=== PATIENT | female | born 1980 | race Hispanic/Latino ===

== ENCOUNTER 2020-06-14 10:31 | Emergency (ER) | payer OTHER ==
[~2020-06-14] VITALS: Ht 162.6 cm; Wt 49.9 kg
--- OUTSIDE RECORDS SUMMARY | ~2020-06-14 | XMS | Encounter Summary ---
Demographics + + + | Address | [address] | | | [place] [address] | + + + | Home Phone | | + + + | Preferred Language | Unknown | + + + | Marital Status | | + + + | Anglican Affiliation | Unknown | + + + | Race | Unknown | + + + | Ethnic Group | Unknown | + + + Author + + + | Author | [facility] | | | and [place] | + + + | Organization | [facility] | | | and [place] | + + + | Address | Unknown | + + + | Phone | Unavailable | + + + Support + + + + + | Name | Relationship | Address | Phone | + + + + + | Kaiden Sandoval | ECON | [address] | | | | | [place] | | | | | [address] | | + + + + + Care Team Providers + +------+ + | Care Dye Weigher Helper Name | Role | Phone | + +------+ + | Unknown, Physician | PCP | | + +------+ + Reason for Visit +--------+ + | Reason | Comments | +--------+ + | URI | x 1 week. Productive cough, chest congestion, intermittent fever. | | | | +--------+ + Encounter Details +--------+---------+ + + + | Date | Type | Department | Care Team | Description | +--------+---------+ + + + | 04/15/ | Office | [facility] | Bárbara Brown | Multiple URI | | 2019 | Visit | [address] | A, SURGEON ASSISTANT [address] | (Primary Dx); | | | | [address] | [place] [address] | Impacted cerumen of | | | | [facility] | [phone] | left ear | | | | [place] [address] | | | | | | [phone] | | | +--------+---------+ + + + Social History + +-------+ +--------+------+ | Tobacco Use | Types | Packs/Day | Years | Date | | | | | Used | | + +-------+ +--------+------+ | Never Smoker | | | | | + +-------+ +--------+------+ + +---+---+---+ | Smokeless Tobacco: | | | | | Never Used | | | | + +---+---+---+ + + +---------+ + | Alcohol Use | Drinks/Week | oz/Week | Comments | + + +---------+ + | No | | | | + + +---------+ + + + + | Sex Assigned at | Date Recorded | | | | + + + | Not on file | | + + + documented as of this encounter Last Filed Vital Signs + + + + + | Vital Sign | Reading | Time Taken | Comments | + + + + + | Blood Pressure | 106/64 | 04/15/2019 11:09 AM | | | | | PDT | | + + + + + | Pulse | 92 | 04/15/2019 11:09 AM | | | | | PDT | | + + + + + | Temperature | 36.8 C (98.3 F) | 04/15/2019 11:09 AM | | | | | PDT | | + + + + + | Respiratory Rate | 16 | 04/15/2019 11:09 AM | | | | | PDT | | + + + + + | Oxygen Saturation | 100% | 04/15/2019 11:09 AM | | | | | PDT | | + + + + + | Inhaled Oxygen | - | - | | | Concentration | | | | + + + + + | Weight | 53.5 kg (118 lb) | 04/15/2019 11:09 AM | | | | | PDT | | + + + + + | Height | - | - | | + + + + + | Body Mass Index | 20.25 | 02/19/2016 10:49 AM | | | | | PDT | | + + + + + documented in this encounter Patient Instructions Patient Instructions Bárbara Brown ARNP - 04/15/2019 11:40 AM PDTMucinex DM, 12 sandra r size and take one twice daily for congestion and cough. Could add benzonatate 100 mg ever y 6-8 hours as needed for cough. Drink lots of water and get enough rest.Electronically sig marlena by SUZY Stokes at 04/15/2019 11:41 AM PDT documented in this encounter Progress Notes Bárbara Brown ARNP - 04/15/2019 11:40 AM PDTFormatting of this note might be differ ent from the original. Pallavi Sandoval is a 38 y.o. female Chief Complaint: URI (x 1 week. Productive cough, chest congestion, intermittent fever. ) HPI IIll for 7 days with an annoying cough. C/o congested nose, aore throat and mostly a dry cough, but occasionally has green mucous. Has tried Dayquil and Nyquil and Hals. Was s een Sunday and was Dx with a sinus infection. Was given some OTC meds that are not helping. Has not taken any Tylenol or ibuprofen for fever or throat pain today. PREVENTIVE CARE/PRIOR VISITS 1. Any recommendations from Health Maintenance: Preventative Services TOPIC LAST DONE NEXT DUE Vaccine: Influenza 07/13/2019 Cervical Cancer Screening (Pap) 2010 Vaccine: Dtap/Tdap/Td 1999 2. Any immunizations necessary: There is no immunization history on file for this patient. Allergies Allergen Reactions Procaine Other (See Comments) Respiratory arrest Acetaminophen Other (See Comments) Unknown reaction Latex Other (See Comments) Per unknown Oxycodone Other (See Comments) Unknown Amoxicillin Penicillins Medications: Patient Reported Taking No current medications. Past Medical History She has no past medical history on file. Past Surgical History She has no past surgical history on file. Family History: Her family history is not on file. Social History: Social History Socioeconomic History Marital status: Spouse name: Not on file Number of children: Not on file Years of education: Not on file Highest education level: Not on file Tobacco Use Smoking status: Never Smoker Smokeless tobacco: Never Used Substance and Sexual Activity Alcohol use: No Review of Systems Constitutional: Positive for appetite change, chills, diaphoresis and fever. Trouble sleeping due to cough and congestion. HENT: Positive for congestion, rhinorrhea, sore throat, trouble swallowing and voice change . My Left ear popped on 04-12-19 and there was blood coming out, but was told there was to o much wax to see. They tried to clean it out with water, but since then I can not hear out of my left ear. Eyes: Negative. Respiratory: Frequent coughing Cardiovascular: Negative. Gastrointestinal: Positive for nausea and vomiting. Vomited yesterday. Some diarrhea yesterday. Endocrine: Negative. Genitourinary: Negative. Musculoskeletal: Negative. Skin: Negative. Allergic/Immunologic: Negative. Neurological: Positive for dizziness. Negative for headaches. Hematological: Negative. Objective: Vitals: 04/15/19 1109 BP: 106/64 Pulse: 92 Resp: 16 Temp: 36.8 C (98.3 F) TempSrc: Temporal SpO2: 100% Weight: 53.5 kg (118 lb) Physical Exam Constitutional: She appears well-developed and well-nourished. No distress. Appears unhappy. HENT: Head: Normocephalic. Right Ear: External ear normal. Left Ear: External ear normal. Nose: Nose normal. Mouth/Throat: No oropharyngeal exudate. Left ear canal full of wax, decreased hearing, no visible blood and ear is not tender to to uch or exam. Right ear is WNL. Mildly red throat without exudates and tonsils are small. The strep test is negative. The left ear is cleaned out with warm water and then alcohol to dry. She is thankful she can hear again. There was no sign of canal trauma and the TM is WNL. Neck: Normal range of motion. No thyromegaly present. Cardiovascular: Normal rate and normal heart sounds. No murmur heard. Pulmonary/Chest: Effort normal and breath sounds normal. No respiratory distress. She has n o wheezes. She has no rales. She exhibits no tenderness. C/o itchy tickle in throat that makes her cough. Cough is dry sounding to me. Abdominal: Soft. Bowel sounds are normal. Musculoskeletal: Normal gait, balance, and posture. Lymphadenopathy: She has no cervical adenopathy. Skin: Skin is warm and dry. She is not diaphoretic. Psychiatric: She has a normal mood and affect. Her behavior is normal. Judgment and thought content normal. Nursing note and vitals reviewed. Results for orders placed or performed in visit on 04/15/19 POCT Streptococcus A NAAT Result Value Ref Range Group A Strep, DNA POC Negative Negative Internal QC Acceptable Acceptable CULTURE SENT TO LAB Assessment: 1. Multiple URI POCT Streptococcus A NAAT 2. Impacted cerumen of left ear Plans: 1. Multiple URI - POCT Streptococcus A NAAT 2. Impacted cerumen of left ear Mucinex DM, 12 hour size and take one twice daily for congestion and cough. Could add gregorio onatate 100 mg every 6-8 hours as needed for cough. Drink lots of water and get enough rest Follow-up: Return if symptoms worsen or fail to improve. Care instructions and warning signs were discussed. Medications per orders. Side effects discussed. Labs and investigations per orders. documented in this encounter Plan of Treatment Not on filedocumented as of this encounter Procedures + +--------+ + + + | Procedure Name | Priori | Date/Time | Associated Diagnosis | Comments | | | ty | | | | + +--------+ + + + | POCT STREPTOCOCCUS A | Routin | 04/15/2019 | Multiple URI | Results for this | | NAAT | e | 11:40 AM | | procedure are in the | | | | PDT | | results section. | + +--------+ + + + documented in this encounter Results POCT Streptococcus A NAAT (04/15/2019 11:40 AM PDT) + + + + + + | Component | Value | Ref Range | Performed | Pathologist | | | | | At | Signature | + + + + + + | Group A | Negative | Negative | | | | Strep, DNA | | | | | | POC | | | | | + + + + + + | Internal QC | Acceptable | Acceptable | | | + + + + + + | CULTURE | | | | | | SENT TO LAB | | | | | + + + + + + + + | Specimen | + + | | + + documented in this encounter Visit Diagnoses + + | Diagnosis | + + | Multiple URI - Primary Acute upper respiratory infections of other multiple sites | + + | Impacted cerumen of left ear Impacted cerumen | + + documented in this encounter"
--- OUTSIDE RECORDS SUMMARY | ~2020-06-14 | XMS | Clinical Summary ---
Demographics + + + | Address | [address] | | | [place] [address] | + + + | Home Phone | | + + + | Preferred Language | Unknown | + + + | Marital Status | | + + + | Scientologist Affiliation | Unknown | + + + | Race | Unknown | + + + | Ethnic Group | Unknown | + + + Author + + + | Author | [facility] | | | and [place] | + + + | Organization | [facility] | | | and [place] | + + + | Address | Unknown | + + + | Phone | Unavailable | + + + Support + + + + + | Name | Relationship | Address | Phone | + + + + + | Kaiden Sandoval | ECON | [address] | | | | | [place], [place] | | | | | [address] | | + + + + + Care Team Providers + +------+ + | Care Technical Analyst Name | Role | Phone | + +------+ + | Unknown, Physician | PCP | | + +------+ + Allergies + + + + + + | Active Allergy | Reactions | Severity | Noted | Comments | | | | | Date | | + + + + + + | Acetaminophen | Other (See Comments) | Medium | 02/18/20 | Unknown reaction | | | | | 16 | | + + + + + + | Amoxicillin | | | 08/20/20 | | | | | | 18 | | + + + + + + | Latex | Other (See Comments) | Medium | 02/18/20 | Per | | | | | 16 | unknown | + + + + + + | Oxycodone | Other (See Comments) | Medium | 02/18/20 | Unknown | | | | | 16 | | + + + + + + | Penicillins | | | 08/20/20 | | | | | | 18 | | + + + + + + | Procaine | Other (See Comments) | High | 02/18/20 | Respiratory arrest | | | | | 16 | | + + + + + + Medications No known medications Active Problems Not on file Social History + +-------+ +--------+------+ | Tobacco [...] on file | | + + + Last Filed Vital Signs + + + [...] + + + + | Height | 162.6 cm (5' 4") | 02/19/2016 10:49 AM | | | | | PDT | | + + + + + | Body Mass Index | 20.25 | 02/19/2016 10:49 AM | | | | | PDT | | + + + + + Plan of Treatment + + +-------+ + | Health Maintenance | Due Date | Last | Comments | | | | Done | | + + +-------+ + | Hepatitis C | | | | | Screening | 0 | | | + + +-------+ + | Vaccine: | | | | | Dtap/Tdap/Td (1 - | 9 | | | | Tdap) | | | | + + +-------+ + | Cervical Cancer | | | | | Screening (Pap) | 0 | | | + + +-------+ + | Vaccine: Influenza | | | | | (#1) | 0 | | | + + +-------+ + Results Not on filefrom Last 3 Months Insurance +---------+--------+ +--------+ +---------+------+ | Payer | Benefi | Subscriber | Effect | Phone | Address | Type | | | t Plan | ID | kevin | | | | | | / | | Dates | | | | | | Group | | | | | | +---------+--------+ +--------+ +---------+------+ | [employer] | PREMER | [id number] | | [phone] | | PPO | | | A | 3 | [id number] | 0 | | | | | PREFER | | esent | | | | | | RED | | | | | | +---------+--------+ +--------+ +---------+------+ + +--------+ +--------+ + + | Guarantor Name | Accoun | Relation to | Date | Phone | Billing Address | | | t Type | Patient | of | | | | | | | | | | + +--------+ +--------+ + + | Pallavi Sandoval | Person | Self [birth year] | [address] | | | al/Fam | | 1980 | [phone] | [place] [address] | | | marilyn | | | 4 (Home) | | + +--------+ +--------+ + + Advance Directives + + + + + | Type | Date Recorded | Patient | Explanation | | | | Saw Sharpener | | + + + + + | Power of | | | | | Guest Experience Specialist | | | | + + + + + | Advance | 08/20/2018 11:20 | | | | Directive | AM | | | + + + + +
--- OUTSIDE RECORDS SUMMARY | ~2020-06-14 | XMS | Encounter Summary ---
Demographics + + + | Address | [address] | | | [place] [address] | + + + | Home Phone | | + + + | Preferred Language | Unknown | + + + | Marital Status | | + + + | Baptism Affiliation | Unknown | + + + | Race | Unknown | + + + | Ethnic Group | Unknown | + + + Author + + + | Author | [facility] | | | and [place] | + + + | Organization | [facility] | | | and [place] | + + + | Address | Unknown | + + + | Phone | Unavailable | + + + Support + + + + + | Name | Relationship | Address | Phone | + + + + + | Kaiden Sandoval | ECON | [address] | | | | | [place] | | | | | [address] | | + + + + + Care Team Providers + +------+ + | Care Network Engineer Name | Role | Phone | + +------+ + | Unknown, Physician | PCP | | + +------+ + Reason for Visit + + + | Reason | Comments | + + + | Chest Pain | | + + + | Weakness | | + + + Encounter Details +--------+ + + + + | Date | Type | Department | Care Team | Description | +--------+ + + + + | 08/20/ | Emergency | [facility] | Germán Castillo MD | Hypoglycemia | | 2018 | | [facility] | [address] | (Primary Dx) | | | | CENTER [address] | [place], [place] | | | | | [place], [place] | [address] | | | | | [address] | | | | | | [phone] | | | +--------+ + + + + Social History + +-------+ +--------+------+ | Tobacco Use | Types | Packs/Day | Years | Date | | | | | Used | | + +-------+ +--------+------+ | Unknown If Ever | | | | | | Smoked | | | | | + +-------+ +--------+------+ + + +---------+ + | Alcohol Use [...] + + + | Blood Pressure | 96/61 | 08/20/2018 12:59 PM | | | | | PDT | | + + + + + | Pulse | 67 | 08/20/2018 12:59 PM | | | | | PDT | | + + + + + | Temperature | 37.3 C (99.1 F) | 08/20/2018 11:51 AM | | | | | PDT | | + + + + + | Respiratory Rate | 14 | 08/20/2018 12:59 PM | | | | | PDT | | + + + + + | Oxygen Saturation | 100% | 08/20/2018 12:59 PM | | | | | PDT | | + + + + + | Inhaled Oxygen | - | - | | | Concentration | | | | + + + + + | Weight | 50.8 kg (112 lb) | 08/20/2018 10:11 AM | | | | | PDT | | + + + + + | Height | - | - | | + + + + + | Body Mass Index | 19.22 | 02/19/2016 10:49 AM | | | | | PDT | | + + + + + documented in this encounter Discharge Instructions Instructions Germán Castillo MD - 08/20/2018If he develop any similar symptoms eat some food. If symptoms do not improve have someone transport you to the emergency department. AttachmentsThe following attachments cannot be sent through Care Everywhere.Hypoglycemia, N ondiabetic (German)documented in this encounter ED Notes Manny Rucker RN - 08/20/2018 1:07 PM PDTPt ambulates out of ED with a steady gait. Disch arge instructions given both verbally and in writing. Questions answered. Advised to Get a P CP. Dave Hughes RN - 1 10:11 AM PDTPt states onset of generalized weakness and chest pain starting this m orning. Pt difficult to arouse on arrival to ED and very drowsy. Germán Johnson MD - 08/20/2018 10:08 AM PDT [facility] Pallavi Sandoval Emergency Department Encounter Note [address] [place] [address] PCP:Physician Unknown SHANNEN [phone] CHIEF COMPLAINT: Chief Complaint Patient presents with Chest Pain Weakness ED Room: ED05/ED05 HPI Pallavi Sandoval is a 38 y.o. female who presents to the Emergency Department with altered ment al status and chest pressure. She is also complaining of dizziness and headache. She was f ine up until an hour ago when she had sudden onset of the symptoms. Patient's moving all 4 extremities and answering some questions properly. was at bedside states that she h as had similar presentation in the past several due to low potassium. Blood sugar was 90 on arrival. Patient was also given some Narcan. PAST MEDICAL & SURGICAL HISTORY History reviewed. No pertinent past medical history. History reviewed. No pertinent surgical history. CURRENT MEDICATIONS There are no discharge medications for this patient. ALLERGIES Allergies Allergen Reactions Amoxicillin Penicillins FAMILY AND SOCIAL HISTORY History reviewed. No pertinent family history. Social History Social History Marital status: Spouse name: N/A Number of children: N/A Years of education: N/A Social History Main Topics Smoking status: Unknown If Ever Smoked Smokeless tobacco: None Alcohol use No Drug use: Unknown Sexual activity: Not Asked Other Topics Concern None Social History Narrative None REVIEW OF SYSTEMS As in history of present illness. A 10 system review was otherwise negative. PHYSICAL EXAM VITAL SIGNS: (first vital signs):Temp: 37.3 C (99.1 F) Pulse: 109 Resp: 18 SpO2: 100 % BP: 131/61 There is no height or weight on file to calculate BMI. Constitutional: female patient, slow to respond HEENT: Atraumatic, PERRL, Oropharynx benign. Neck: Supple with full range of motion. Respiratory: Good air movement bilaterally. Cardiovascular: Normal S1 S2 Abdomen: Soft, nontender, nondistended Extremities: Nontender. Skin: Warm, Dry, No rashes Neurologic: Alert & oriented.slow to respond but answering questions appropriately Psychiatric: Normal mood, affect and judgement. EKG 12-lead EKG shows sinus tachycardia with rate 104, LA interval 156, QRS 84, QT/QTC of 33 8/444, nonspecific ST changes LABS Results for orders placed or performed during the hospital encounter of 08/20/18 CBC with Differential Result Value Ref Range WBC 4.5 4.0 - 11.0 K/uL RBC 4.13 3.70 - 5.20 M/uL Hgb 12.6 11.5 - 16.0 g/dL Hct 37.3 34.0 - 47.0 % MCV 90.3 83.0 - 101.0 fL MCH 30.5 28.0 - 35.0 pg MCHC 33.8 32.0 - 36.0 g/dL RDW-CV 12.2 <15.0 % RDW-SD 39.9 35.1 - 46.3 fL Platelet Count 156 140 - 440 K/uL MPV 10.6 6.5 - 12.4 fL % Neutrophils 51.4 45.0 - 82.0 % % Lymphocytes 39.6 20.0 - 45.0 % % Monocytes 7.3 4.0 - 12.0 % % Eosinophils 1.3 0.0 - 5.0 % % Basophils 0.4 0.0 - 1.0 % % Immature granulocytes 0.0 0.0 - 0.4 % Absolute Neutrophils 2.32 1.80 - 8.50 K/uL Absolute Lymphocytes 1.79 0.60 - 3.20 K/uL Absolute Monocytes 0.33 0.00 - 1.00 K/uL Absolute Eosinophils 0.06 0.00 - 0.40 K/uL Absolute Basophils 0.02 0.00 - 0.10 K/uL Absolute Imm. Granulocytes 0.00 0.00 - 0.03 K/uL nRBC 0 0 - 2 per 100 WBC's NRBC ABS 0.00 0.00 - 0.01 K/uL Comprehensive Metabolic Panel Result Value Ref Range NA 135 (L) 136 - 149 mmol/L K 3.4 (L) 3.5 - 5.1 mmol/L CL 104 98 - 109 mmol/L CO2 23 (L) 24 - 31 mmol/L ANION GAP 8 3 - 16 mmol/L GLUCOSE 98 70 - 109 mg/dL BUN 9 7 - 18 mg/dL Creatinine, Serum/Plasma 0.71 0.60 - 1.30 mg/dL eGFR if not >60 >=60 mL/min/1.73m2 CALCIUM 9.1 8.3 - 10.5 mg/dL ALBUMIN 4.1 3.2 - 5.0 g/dL Bilirubin Total 0.9 0.1 - 1.5 mg/dL Total protein 7.0 6.0 - 7.8 g/dL AST 20 10 - 42 U/L ALT 12 6 - 45 U/L ALK PHOS 49 40 - 110 U/L GLOBULIN 2.9 2.1 - 3.8 g/dL Albumin/Globulin ratio 1.4 0.8 - 2.0 BUN/CREA 12.7 Troponin I Result Value Ref Range Troponin I <0.01 <0.06 ng/mL Urinalysis with Microscopic with Culture if Indicated Result Value Ref Range COLOR Yellow Light Yellow, Yellow, Straw CLARITY Hazy (A) Clear PH UA 8.0 5.0 - 8.0 Specific [place] 1.006 1.001 - 1.030 PROTEIN UA Negative Negative BLOOD UA Negative Negative GLUCOSE UA Negative Negative KETONES UA Negative Negative BILIRUBIN UA Negative Negative NITRITE UA Negative Negative LEUKOCYTES ESTERASE UA Trace (A) Negative UROBILINOGEN UA Negative 0.2 mg/dL, 1.0 mg/dL, Negative WBC UA 0-2 0 - 2 /HPF RBC UA 0-2 0 - 2 /HPF SQUAMOUS EPITHELIAL UA 25-50 (A) 0 - 2 /LPF BACTERIA UA 2+ (A) Negative /HPF MUCUS UA Present (A) Negative /LPF Acetaminophen Level Result Value Ref Range Acetaminophen Level <10 <10 ug/mL Salicylate Level Result Value Ref Range Salicylate Level <4.0 <30.0 mg/dL Ethanol Result Value Ref Range ALCOHOL, SERUM/PLASMA <5 <400 mg/dL Drugs of Abuse, Screen, Urine Result Value Ref Range Amphetamine Screen, Urine Negative Negative Barbiturates Screen, Urine Negative Negative Benzodiazepines, Urine, Screen Negative Negative Cannabinoids Screen, Urine Negative Negative Cocaine Screen, Urine Negative Negative Methadone Screen, Urine Negative Negative Opiates Screen, Urine Negative Negative Extra Lavender Top Tube Result Value Ref Range Extra Lavender Top Tube Done POCT Test, Urine, QUAL Result Value Ref Range Test, Urine, POC Negative Negative Internal QC Acceptable Acceptable Specific [place], POC 1.010, 1.015, 1.020, 1.025 Lot Number [id number] Expiration Date 10/21/2019 POC Glucose Result Value Ref Range Glucose, POC 90 70 - 109 mg/dL ECG 12 lead Result Value Ref Range VENTRICULAR RATE EKG 104 BPM ATRIAL RATE 104 BPM P-R INTERVAL 156 ms QRS DURATION 84 ms Q-T INTERVAL 338 ms Q-T INTERVAL (CORRECTED) 444 ms P WAVE AXIS 53 degrees QRS AXIS 51 degrees T AXIS 36 degrees INTERPRETATION TEXT Sinus tachycardia Nonspecific ST abnormality Abnormal ECG No previous ECGs available Confirmed by MICHAEL HUGHES MD ([id number]) on 08/20/2018 4:56:34 PM ED COURSE & MEDICAL DECISION MAKING Pertinent Labs & Imaging studies were reviewed along with EMS notes and care home record s if applicable. (See chart for details) Medications and Allergy list reviewed. Nurses note and old records were reviewed The patient was seen and examined. Patient was able to provide more thorough history during her ED stay. Her the course of e first 45 minutes patient's mental status did improve. She became a lot more alert and trinity ented. She then asked to be discharged. Patient has been informing the nurse at the school told her that her blood sugar was low. She was given food. arrived he told me lawanda t she had similar presentation previously secondary to hypokalemia. Workup here was relativ alok unremarkable. Potassium was 3.4. EKG did not show anything acute. Possible that episo de was secondary to a hypoglycemic event. Patient was instructed to return if she develop a ny similar symptoms. Also encouraged to eat if she felt lightheaded. Last Set of Vital Signs: Temp: 37.3 C (99.1 F) Pulse: 67 Resp: 14 SpO2: 100 % BP: 96/61 FINAL IMPRESSION ICD-10-CM ICD-9-CM 1. HypoglycemiaAcute E16.2 251.2 Follow-up Information [facility]. Specialty: Emergency Medicine Why: If symptoms worsen Contact information: [address] [place] [phone] Schedule an appointment as soon as possible for a visit with Physician Unknown PA. Contact information: [phone] There are no discharge medications for this patient. Germán Castillo MD 08/21/18 [id number] documented in this encou nter Plan of Treatment Not on filedocumented as of this encounter Procedures + +--------+ + + + | Procedure Name | Priori | Date/Time | Associated Diagnosis | Comments | | | ty | | | | + +--------+ + + + | POCT TEST, | STAT | 08/20/2018 | | Results for this | | URINE, QUAL | | 11:57 AM | | procedure are in the | | | | PDT | | results section. | + +--------+ + + + | URINALYSIS WITH | STAT | 08/20/2018 | | Results for this | | MICROSCOPIC WITH | | 11:52 AM | | procedure are in the | | CULTURE IF INDICATED | | PDT | | results section. | + +--------+ + + + | DRUGS OF ABUSE, | STAT | 08/20/2018 | | Results for this | | SCREEN, URINE | | 11:52 AM | | procedure are in the | | | | PDT | | results section. | + +--------+ + + + | EXTRA LAVENDER TOP | Routin | 08/20/2018 | | Results for this | | TUBE | e | 10:31 AM | | procedure are in the | | | | PDT | | results section. | + +--------+ + + + | TROPONIN I | STAT | 08/20/2018 | | Results for this | | | | 10:26 AM | | procedure are in the | | | | PDT | | results section. | + +--------+ + + + | CBC WITH | STAT | 08/20/2018 | | Results for this | | DIFFERENTIAL | | 10:26 AM | | procedure are in the | | | | PDT | | results section. | + +--------+ + + + | ALCOHOL | STAT | 08/20/2018 | | Results for this | | | | 10:26 AM | | procedure are in the | | | | PDT | | results section. | + +--------+ + + + | ACETAMINOPHEN LEVEL | STAT | 08/20/2018 | | Results for this | | | | 10:26 AM | | procedure are in the | | | | PDT | | results section. | + +--------+ + + + | SALICYLATE LEVEL | STAT | 08/20/2018 | | Results for this | | | | 10:26 AM | | procedure are in the | | | | PDT | | results section. | + +--------+ + + + | COMPREHENSIVE | STAT | 08/20/2018 | | Results for this | | METABOLIC PANEL | | 10:26 AM | | procedure are in the | | | | PDT | | results section. | + +--------+ + + + | POC GLUCOSE | Routin | 08/20/2018 | | Results for this | | | e | 10:21 AM | | procedure are in the | | | | PDT | | results section. | + +--------+ + + + | ECG 12 LEAD | STAT | 08/20/2018 | | Results for this | | | | 10:15 AM | | procedure are in the | | | | PDT | | results section. | + +--------+ + + + documented in this encounter Results POCT Test, Urine, QUAL (08/20/2018 11:57 AM PDT) + + + + + + | Component | Value | Ref Range | Performed | Pathologist | | | | | At | Signature | + + + + + + | | Negative | Negative | | | | Test, | | | | | | Urine, POC | | | | | + + + + + + | Internal QC | Acceptable | Acceptable | | | + + + + + + | Specific | | 1.010, 1.015, | | | | [place], | | 1.020, 1.025 | | | | POC | | | | | + + + + + + | Lot Number | [id number] | | | | + + + + + + | Expiration | 10/21/2019 | | | | | Date | | | | | + + + + + + + + | Specimen | + + | Urine | + + Drugs of Abuse, Screen, Urine (08/20/2018 11:52 AM PDT) + + + + + + | Component | Value | Ref Range | Performed | Pathologist | | | | | At | Signature | + + + + + + | Amphetamine | Negative | Negative | [facility] | | | Screen, | | | [facility] | | | Urine | | | MEDICAL | | | | | | CENTER - | | | | | | LABORATORY | | + + + + + + | Barbiturate | Negative | Negative | [facility] | | | s Screen, | | | [facility] | | | Urine | | | MEDICAL | | | | | | CENTER - | | | | | | LABORATORY | | + + + + + + | Benzodiazep | Negative | Negative | [facility] | | | janina | | | [facility] | | | Screen, | | | MEDICAL | | | Urine | | | CENTER - | | | | | | LABORATORY | | + + + + + + | Cannabinoid | Negative | Negative | [facility] | | | s Screen, | | | [facility] | | | Urine | | | MEDICAL | | | | | | CENTER - | | | | | | LABORATORY | | + + + + + + | Cocaine | Negative | Negative | [facility] | | | Screen, | | | [facility] | | | Urine | | | MEDICAL | | | | | | CENTER - | | | | | | LABORATORY | | + + + + + + | Methadone | Negative | Negative | [facility] | | | Screen, | | | [facility] | | | Urine | | | MEDICAL | | | | | | CENTER - | | | | | | LABORATORY | | + + + + + + | Opiates | Negative | Negative | [facility] | | | Screen, | | | [facility] | | | Urine | | | MEDICAL | | | | | | CENTER - | | | | | | LABORATORY | | + + + + + + + + | Specimen | + + | Urine - Urine | | specimen obtained by | | clean catch | | procedure (specimen) | + + + + + + + | Performing | Address | City/State/Zipcode | Phone Number | | Organization | | | | + + + + + | [facility] | [address] | [place] | [phone] | | [facility] | | [address] | | | - LABORATORY | | | | + + + + + Urinalysis with Microscopic with Culture if Indicated (08/20/2018 11:52 AM PDT) + + + + + + | Component | Value | Ref Range | Performed | Pathologist | | | | | At | Signature | + + + + + + | Color, | Yellow | Light Yellow, | [facility] | | | Urine | | Yellow, Straw | [facility] | | | | | | MEDICAL | | | | | | CENTER - | | | | | | LABORATORY | | + + + + + + | Clarity, | Hazy (A) | Clear | [facility] | | | Urine | | | [facility] | | | | | | MEDICAL | | | | | | CENTER - | | | | | | LABORATORY | | + + + + + + | pH, Urine | 8.0 | 5.0 - 8.0 | [facility] | | | | | | [facility] | | | | | | MEDICAL | | | | | | CENTER - | | | | | | LABORATORY | | + + + + + + | Specific | 1.006 | 1.001 - 1.030 | [facility] | | | [place], | | | [facility] | | | Urine | | | MEDICAL | | | | | | CENTER - | | | | | | LABORATORY | | + + + + + + | Protein, | Negative | Negative | [facility] | | | Urine | | | [facility] | | | | | | MEDICAL | | | | | | CENTER - | | | | | | LABORATORY | | + + + + + + | Blood, | Negative | Negative | [facility] | | | Urine | | | [facility] | | | | | | MEDICAL | | | | | | CENTER - | | | | | | LABORATORY | | + + + + + + | Glucose, | Negative | Negative | [facility] | | | Urine | | | [facility] | | | | | | MEDICAL | | | | | | CENTER - | | | | | | LABORATORY | | + + + + + + | Ketones, | Negative | Negative | [facility] | | | Urine | | | [facility] | | | | | | MEDICAL | | | | | | CENTER - | | | | | | LABORATORY | | + + + + + + | Bilirubin, | Negative | Negative | [facility] | | | Urine | | | [facility] | | | | | | MEDICAL | | | | | | CENTER - | | | | | | LABORATORY | | + + + + + + | Nitrite, | Negative | Negative | [facility] | | | Urine | | | [facility] | | | | | | MEDICAL | | | | | | CENTER - | | | | | | LABORATORY | | + + + + + + | Leukocyte | Trace (A) | Negative | [facility] | | | Esterase, | | | [facility] | | | Urine | | | MEDICAL | | | | | | CENTER - | | | | | | LABORATORY | | + + + + + + | Urobilinoge | Negative | 0.2 mg/dL, 1.0 | [facility] | | | n, Urine | | mg/dL, Negative | [facility] | | | | | | MEDICAL | | | | | | CENTER - | | | | | | LABORATORY | | + + + + + + | White Blood | 0-2 | 0 - 2 /HPF | [facility] | | | Cells, | | | [facility] | | | Urine | | | MEDICAL | | | | | | CENTER - | | | | | | LABORATORY | | + + + + + + | Red Blood | 0-2 | 0 - 2 /HPF | [facility] | | | Cells, | | | [facility] | | | Urine | | | MEDICAL | | | | | | CENTER - | | | | | | LABORATORY | | + + + + + + | Squamous | 25-50 (A) | 0 - 2 /LPF | [facility] | | | Epithelial | | | [facility] | | | Cells, | | | MEDICAL | | | Urine | | | CENTER - | | | | | | LABORATORY | | + + + + + + | Bacteria, | 2+ (A) | Negative /HPF | [facility] | | | Urine | | | [facility] | | | | | | MEDICAL | | | | | | CENTER - | | | | | | LABORATORY | | + + + + + + | Mucus, | Present (A) | Negative /LPF | [facility] | | | Urine | | | [facility] | | | | | | MEDICAL | | | | | | CENTER - | | | | | | LABORATORY | | + + + + + + + + | Specimen | + + | Urine - Urine | | specimen obtained by | | clean catch | | procedure (specimen) | + + + + + + + | Performing | Address | City/State/Zipcode | Phone Number | | Organization | | | | + + + + + | [facility] | [address] | [place] | [phone] | | [facility] | | [address] | | | - LABORATORY | | | | + + + + + Extra Lavender Top Tube (08/20/2018 10:31 AM PDT) + +-------+ + + + | Component | Value | Ref Range | Performed | Pathologist | | | | | At | Signature | + +-------+ + + + | Extra | Done | | [facility] | | | Lavender | | | [facility] | | | Top Tube | | | MEDICAL | | | | | | CENTER - | | | | | | LABORATORY | | + +-------+ + + + + + | Specimen | + + | Blood | + + + + + + + | Performing | Address | City/State/Zipcode | Phone Number | | Organization | | | | + + + + + | [facility] | [address] | [place] | [phone] | | [facility] | | [address] | | | - LABORATORY | | | | + + + + + Ethanol (08/20/2018 10:26 AM PDT) + +-------+ + + + | Component | Value | Ref Range | Performed | Pathologist | | | | | At | Signature | + +-------+ + + + | ALCOHOL, | <5 | <400 mg/dL | [facility] | | | SERUM/PLASM | | | [facility] | | | A | | | MEDICAL | | | | | | CENTER - | | | | | | LABORATORY | | + +-------+ + + + + + | Specimen | + + | Blood | + + + + + + + | Performing | Address | City/State/Zipcode | Phone Number | | Organization | | | | + + + + + | [facility] | [address] | [place] | [phone] | | [facility] | | [address] | | | - LABORATORY | | | | + + + + + Salicylate Level (08/20/2018 10:26 AM PDT) + +-------+ + + + | Component | Value | Ref Range | Performed | Pathologist | | | | | At | Signature | + +-------+ + + + | Salicylate | <4.0 | <30.0 mg/dL | [facility] | | | Level | | | [facility] | | | | | | MEDICAL | | | | | | CENTER - | | | | | | LABORATORY | | + +-------+ + + + + + | Specimen | + + | Blood | + + + + + + + | Performing | Address | City/State/Zipcode | Phone Number | | Organization | | | | + + + + + | [facility] | [address] | [place] | [phone] | | [facility] | | [address] | | | - LABORATORY | | | | + + + + + Acetaminophen Level (08/20/2018 10:26 AM PDT) + +-------+ + + + | Component | Value | Ref Range | Performed | Pathologist | | | | | At | Signature | + +-------+ + + + | Acetaminoph | <10 | <10 ug/mL | [facility] | | | en Level | | | [facility] | | | | | | MEDICAL | | | | | | CENTER - | | | | | | LABORATORY | | + +-------+ + + + + + | Specimen | + + | Blood | + + + + + + + | Performing | Address | City/State/Zipcode | Phone Number | | Organization | | | | + + + + + | [facility] | [address] | [place] | [phone] | | [facility] | | [address] | | | - LABORATORY | | | | + + + + + Troponin I (08/20/2018 10:26 AM PDT) + + + + + + | Component | Value | Ref Range | Performed | Pathologist | | | | | At | Signature | + + + + + + | Troponin I | <0.01Comment: Reference | <0.06 ng/mL | [facility] | | | | Ranges:0.00-0.06 = | | [facility] | | | | NORMAL>0.06 = | | MEDICAL | | | | SUSPICIOUS FOR | | CENTER - | | | | MYOCARDIAL DAMAGE NOTE: | | LABORATORY | | | | Values greater than 0.50 | | | | | | ng/mL have been shown | | | | | | to be strongly | | | | | | associated with acute | | | | | | myocardial infarction. | | | | | | The [employer] | | | | | | Cardiology (ACC) | | | | | | recommends a decision | | | | | | limit of 0.06 ng/mL for | | | | | | this assay. Results | | | | | | greater than 0.06 can | | | | | | reflect a pre-infarct | | | | | | acute coronary syndrome, | | | | | | but can also reflect | | | | | | myocardial necrosis or | | | | | | injury that is not due | | | | | | to coronary artery | | | | | | disease. Some of these | | | | | | causes are sepsis, | | | | | | hypocolemia, atrial | | | | | | fibrillation, heart | | | | | | failure, pulmonary | | | | | | embolism, myocarditis, | | | | | | myocardial contusion, | | | | | | and renal failure. The | | | | | | diagnosis of myocardial | | | | | | infarction should be | | | | | | based on a combination | | | | | | of the patient's | | | | | | clinical presentation | | | | | | and the clinical | | | | | | laboratory test results | | | | | | (especially serial | | | | | | troponin levels). | | | | + + + + + + + + | Specimen | + + | Blood | + + + + + + + | Performing | Address | City/State/Zipcode | Phone Number | | Organization | | | | + + + + + | [facility] | [address] | [place] | [phone] | | [facility] | | [address] | | | - LABORATORY | | | | + + + + + Comprehensive Metabolic Panel (08/20/2018 10:26 AM PDT) + + + + + + | Component | Value | Ref Range | Performed | Pathologist | | | | | At | Signature | + + + + + + | Na | 135 (L) | 136 - 149 | [facility] | | | | | mmol/L | [facility] | | | | | | MEDICAL | | | | | | CENTER - | | | | | | LABORATORY | | + + + + + + | K | 3.4 (L) | 3.5 - 5.1 | [facility] | | | | | mmol/L | [facility] | | | | | | MEDICAL | | | | | | CENTER - | | | | | | LABORATORY | | + + + + + + | Cl | 104 | 98 - 109 mmol/L | [facility] | | | | | | [facility] | | | | | | MEDICAL | | | | | | CENTER - | | | | | | LABORATORY | | + + + + + + | CO2 | 23 (L) | 24 - 31 mmol/L | [facility] | | | | | | [facility] | | | | | | MEDICAL | | | | | | CENTER - | | | | | | LABORATORY | | + + + + + + | Anion Gap | 8 | 3 - 16 mmol/L | [facility] | | | | | | [facility] | | | | | | MEDICAL | | | | | | CENTER - | | | | | | LABORATORY | | + + + + + + | Glucose | 98 | 70 - 109 mg/dL | [facility] | | | | | | [facility] | | | | | | MEDICAL | | | | | | CENTER - | | | | | | LABORATORY | | + + + + + + | BUN | 9 | 7 - 18 mg/dL | [facility] | | | | | | [facility] | | | | | | MEDICAL | | | | | | CENTER - | | | | | | LABORATORY | | + + + + + + | Creatinine | 0.71 | 0.60 - 1.30 | [facility] | | | | | mg/dL | [facility] | | | | | | MEDICAL | | | | | | CENTER - | | | | | | LABORATORY | | + + + + + + | eGFR, | >60Comment: GLOMERULAR | >=60 | [facility] | | | non- | FILTRATION | mL/min/1.73m2 | [facility] | | | [place] | RATE,ESTIMATED | | MEDICAL | | | | mL/min/1.29k2Fesq than | | CENTER - | | | | 60 Chronic kidney | | LABORATORY | | | | disease,if found over a | | | | | | 3-month period.Less than | | | | | | 15 Kidney failureFor | | | | | | | | | | | | Americans,multiply the | | | | | | calculated GFR by 1.21. | | | | | | | | | | + + + + + + | Calcium | 9.1 | 8.3 - 10.5 | [facility] | | | | | mg/dL | [facility] | | | | | | [facility] - | | | | | | LABORATORY | | + + + + + + | Albumin | 4.1 | 3.2 - 5.0 g/dL | [facility] | | | | | | [facility] | | | [facility] | | [facility] | | | | | | [facility] - | | | | | | LABORATORY | | + + + + + + | Bilirubin | 0.9Comment: This is an | 0.1 - 1.5 mg/dL | [facility] | | | Total | appended report. These | | [facility] | | | | results have been | | MEDICAL | | | | appended to a previously | | CENTER - | | | | preliminary verified | | LABORATORY | | | | report. | | | | + + + + + + | Total | 7.0 | 6.0 - 7.8 g/dL | [facility] | | | Protein | | | [facility] | | | | | | [facility] | | | | | | CENTER - | | | | | | LABORATORY | | + + + + + + | AST | 20Comment: This is an | 10 - 42 U/L | [facility] | | | | appended report. These | | [facility] | | | | results have been | | MEDICAL | | | | appended to a previously | | CENTER - | | | | preliminary verified | | LABORATORY | | | | report. | | | | + + + + + + | ALT | 12Comment: This is an | 6 - 45 U/L | [facility] | | | | appended report. These | | [facility] | | | | results have been | | MEDICAL | | | | appended to a previously | | CENTER - | | | | preliminary verified | | LABORATORY | | | | report. | | | | + + + + + + | Alkaline | 49Comment: This is an | 40 - 110 U/L | [facility] | | | Phosphatase | appended report. These | | [facility] | | | | results have been | | MEDICAL | | | | appended to a previously | | CENTER - | | | | preliminary verified | | LABORATORY | | | | report. | | | | + + + + + + | Globulin | 2.9 | 2.1 - 3.8 g/dL | [facility] | | | | | | [facility] | | | | | | [facility] | | | | | | CENTER - | | | | | | LABORATORY | | + + + + + + | Albumin/Miryam | 1.4 | 0.8 - 2.0 | [facility] | | | bulin Ratio | | | [facility] | | | | | | [facility] | | | | | | CENTER - | | | | | | LABORATORY | | + + + + + + | BUN/Creatin | 12.7 | | [facility] | | | ine Ratio | | | [facility] | | | | | | [facility]ICAL | | | | | | CENTER - | | | | | | LABORATORY | | + + + + + + + + | Specimen | + + | Blood | + + + + + + + | Performing | Address | City/State/Zipcode | Phone Number | | Organization | | | | + + + + + | [facility] | [address] | [place] | [phone] | | [facility] | | [address] | | | - LABORATORY | | | | + + + + + CBC with Differential (08/20/2018 10:26 AM PDT) + + + + + + | Component | Value | Ref Range | Performed | Pathologist | | | | | At | Signature | + + + + + + | White Blood | 4.5 | 4.0 - 11.0 K/uL | [facility] | | | Cells | | | [facility] | | | | | | MEDICAL | | | | | | CENTER - | | | | | | LABORATORY | | + + + + + + | Red Blood | 4.13 | 3.70 - 5.20 | [facility] | | | Cells | | M/uL | [facility] | | | | | | MEDICAL | | | | | | CENTER - | | | | | | LABORATORY | | + + + + + + | Hemoglobin | 12.6 | 11.5 - 16.0 | [facility] | | | | | g/dL | [facility] | | | | | | [facility]ICAL | | | | | | CENTER - | | | | | | LABORATORY | | + + + + + + | Hematocrit | 37.3 | 34.0 - 47.0 % | [facility] | | | | | | [facility] | | | | | | [facility]ICAL | | | | | | CENTER - | | | | | | LABORATORY | | + + + + + + | MCV | 90.3 | 83.0 - 101.0 fL | [facility] | | | | | | [facility] | | | | | | [facility] | | | | | | CENTER - | | | | | | LABORATORY | | + + + + + + | MCH | 30.5 | 28.0 - 35.0 pg | [facility] | | | | | | [facility] | | | | | | [facility] | | | | | | CENTER - | | | | | | LABORATORY | | + + + + + + | MCHC | 33.8 | 32.0 - 36.0 | [facility] | | | | | g/dL | [facility] | | | | | | [facility] | | | | | | CENTER - | | | | | | LABORATORY | | + + + + + + | RDW-CV | 12.2 | <15.0 % | [facility] | | | | | | [facility] | | | | | | [facility] | | | | | | CENTER - | | | | | | LABORATORY | | + + + + + + | RDW-SD | 39.9 | 35.1 - 46.3 fL | [facility] | | | | | | [facility] | | | | | | [facility] | | | | | | CENTER - | | | | | | LABORATORY | | + + + + + + | Platelet | 156 | 140 - 440 K/uL | [facility] | | | Count | | | [facility] | | | | | | MEDICAL | | | | | | CENTER - | | | | | | LABORATORY | | + + + + + + | MPV | 10.6 | 6.5 - 12.4 fL | [facility] | | | | | | [facility] | | | | | | [facility] | | | | | | CENTER - | | | | | | LABORATORY | | + + + + + + | % | 51.4 | 45.0 - 82.0 % | [facility] | | | Neutrophils | | | [facility] | | | | | | [facility]ICAL | | | | | | CENTER - | | | | | | LABORATORY | | + + + + + + | % | 39.6 | 20.0 - 45.0 % | [facility] | | | Lymphocytes | | | [facility] | | | | | | [facility]ICAL | | | | | | CENTER - | | | | | | LABORATORY | | + + + + + + | % Monocytes | 7.3 | 4.0 - 12.0 % | [facility] | | | | | | [facility] | | | | | | [facility] | | | | | | CENTER - | | | | | | LABORATORY | | + + + + + + | % | 1.3 | 0.0 - 5.0 % | [facility] | | | Eosinophils | | | [facility] | | | | | | MEDICAL | | | | | | CENTER - | | | | | | LABORATORY | | + + + + + + | % Basophils | 0.4 | 0.0 - 1.0 % | [facility] | | | | | | [facility] | | | | | | [facility]ICAL | | | | | | CENTER - | | | | | | LABORATORY | | + + + + + + | % Immature | 0.0Comment: For | 0.0 - 0.4 % | [facility] | | | Granulocyte | patients, use the | | [facility] | | | s | special reference ranges | | MEDICAL | | | | listed below. | | CENTER - | | | | | | LABORATORY | | + + + + + + | Absolute | 2.32 | 1.80 - 8.50 | [facility] | | | Neutrophils | | K/uL | [facility] | | | | | | MEDICAL | | | | | | CENTER - | | | | | | LABORATORY | | + + + + + + | Absolute | 1.79 | 0.60 - 3.20 | [facility] | | | Lymphocytes | | K/uL | [facility] | | | | | | MEDICAL | | | | | | CENTER - | | | | | | LABORATORY | | + + + + + + | Absolute | 0.33 | 0.00 - 1.00 | [facility] | | | Monocytes | | K/uL | [facility] | | | | | | MEDICAL | | | | | | CENTER - | | | | | | LABORATORY | | + + + + + + | Absolute | 0.06 | 0.00 - 0.40 | [facility] | | | Eosinophils | | K/uL | [facility] | | | | | | MEDICAL | | | | | | CENTER - | | | | | | LABORATORY | | + + + + + + | Absolute | 0.02 | 0.00 - 0.10 | [facility] | | | Basophils | | K/uL | [facility] | | | | | | MEDICAL | | | | | | CENTER - | | | | | | LABORATORY | | + + + + + + | Absolute | 0.00Comment: For | 0.00 - 0.03 | [facility] | | | Immature | patients, use | K/uL | [facility] | | | Granulocyte | the special reference | | MEDICAL | | | s | ranges listed below. | | CENTER - | | | | | | LABORATORY | | + + + + + + | % nRBC | 0 | 0 - 2 per 100 | [facility] | | | | | WBC's | [facility] | | | | | | MEDICAL | | | | | | CENTER - | | | | | | LABORATORY | | + + + + + + | Absolute | 0.00 | 0.00 - 0.01 | [facility] | | | nRBC | | K/uL | [facility] | | | | | | MEDICAL | | | | | | CENTER - | | | | | | LABORATORY | | + + + + + + + + | Specimen | + + | Blood | + + + + + | Narrative | Performed At | + + + | IMMATURE GRANULOCYTES - For patients, use the following | [facility] | | reference ranges: Trim. Absolute (K/uL) Percentage (%) | [facility] | | 1st 0.003-0.091 K/uL 0.0-0.9% 2nd 0.007-0.247 K/uL | MEDICAL CENTER | | 0.1-2.0% 3rd 0.018-0.456 K/uL 0.1-2.0% | - LABORATORY | + + + + + + + + | Performing | Address | City/State/Zipcode | Phone Number | | Organization | | | | + + + + + | [facility] | [address] | [place] | [phone] | | [facility] | | [address] | | | - LABORATORY | | | | + + + + + POC Glucose (08/20/2018 10:21 AM PDT) + +-------+ + + + | Component | Value | Ref Range | Performed | Pathologist | | | | | At | Signature | + +-------+ + + + | Glucose, | 90 | 70 - 109 mg/dL | [facility] | | | POC | | | [facility] | | | | | | MEDICAL | | | | | | CENTER - | | | | | | LABORATORY | | + +-------+ + + + + + | Specimen | + + | Blood | + + + + + + + | Performing | Address | City/State/Zipcode | Phone Number | | Organization | | | | + + + + + | [facility] | [address] | [place] | [phone] | | [facility] | | [address] | | | - LABORATORY | | | | + + + + + ECG 12 lead (08/20/2018 10:15 AM PDT) + + + + + + | Component | Value | Ref Range | Performed | Pathologist | | | | | At | Signature | + + + + + + | VENTRICULAR | 104 | BPM | [facility] | | | RATE EKG | | | | | + + + + + + | ATRIAL RATE | 104 | BPM | [facility] | | + + + + + + | P-R | 156 | ms | [facility] | | | INTERVAL | | | | | + + + + + + | QRS | 84 | ms | [facility] | | | DURATION | | | | | + + + + + + | Q-T | 338 | ms | [facility] | | | INTERVAL | | | | | + + + + + + | Q-T | 444 | ms | [facility] | | | INTERVAL | | | | | | (CORRECTED) | | | | | + + + + + + | P WAVE AXIS | 53 | degrees | [facility] | | + + + + + + | QRS AXIS | 51 | degrees | [facility] | | + + + + + + | T AXIS | 36 | degrees | [facility] | | + + + + + + | INTERPRETAT | Sinus | | [facility] | | | ION TEXT | tachycardiaNonspecific | | | | | | ST abnormalityAbnormal | | | | | | ECGNo previous ECGs | | | | | | availableConfirmed by | | | | | | MICHAEL HUGHES MD ([id number]) | | | | | | on 08/20/2018 4:56:34 PM | | | | + + + + + + + + | Specimen | + + | | + + + + + | Narrative | Performed At | + + + | | | + + + + +---------+ + + | Performing | Address | City/State/Zipcode | Phone Number | | Organization | | | | + +---------+ + + | [facility] | | | | + +---------+ + + documented in this encounter Visit Diagnoses + + | Diagnosis | + + | Hypoglycemia - Primary Hypoglycemia, unspecified | + + documented in this encounter Administered Medications + +--------+ +--------+------+------+ | Medication Order | MAR | Action | Dose | Rate | Site | | | Action | Date | | | | + +--------+ +--------+------+------+ | naloxone (NARCAN) 0.4 mg/mL | Given | 08/20/20 | 0.4 mg | | | | injection Starting 08/20/18 | | 18 10:17 | | | | | at 1016, For 1 dose, Mariam, | | AM PDT | | | | | Consuelo : atrun fish, | | | | | | + +--------+ +--------+------+------+ +---+---+ | | | +---+---+ + +-------+ +------+---+---+ | ondansetron (ZOFRAN) injection | Given | 08/20/20 | 4 mg | | | | 4 mg 4 mg, Intravenous, ONCE, | | 18 10:30 | | | | | 08/20/18 at 1025, For 1 dose | | AM PDT | | | | + +-------+ +------+---+---+ +---+---+ | | | +---+---+ + +---------+ +--------+-------+---+ | sodium chloride 0.9% (NS) bolus | New Bag | 08/20/20 | 1,000 | 2000 | | | 1,000 mL 1,000 mL, Intravenous, | | 18 10:28 | mLs | mL/hr | | | Administer over 30 Minutes, | | AM PDT | | | | | ONCE, [place] 08/20/18 at 1025, For 1 | | | | | | | dose | | | | | | + +---------+ +--------+-------+---+ +---+---+ | | | +---+---+ documented in this encounter"
--- OUTSIDE RECORDS SUMMARY | ~2020-06-14 | XMS | Encounter Summary ---
Demographics + + + | Address | [address] | | | [place] [address] | + + + | Home Phone | | + + + | Preferred Language | Unknown | + + + | Marital Status | | + + + | Orthodox Affiliation | Unknown | + + + | Race | Unknown | + + + | Ethnic Group | Unknown | + + + Author + + + | Author | [facility] | | | and [place]ak[place] | + + + | Organization | [facility] | | | and [place] | + + + | Address | Unknown | + + + | Phone | Unavailable | + + + Support + + + + + | Name | Relationship | Address | Phone | + + + + + | Kaiden Sandoval | ECON | [address] | | | | | [place], [place] | | | | | [address] | | + + + + + Care Team Providers + +------+ + | Care Heel Edge Inker Machine Name | Role | Phone | + +------+ + PCP | Unavailable | + +------+ + Encounter Details +--------+ + + + + | Date | Type | Department | Care Team | Description | +--------+ + + + + | 02/17/ | Hospital | [facility] | Eduardo Iyer | Respiratory failure, | | 2016 - | Encounter | [facility] | Willis Griffith MD [address] | unspecified | | | | CLINICAL DECISION | [address] | chronicity, | | 02/18/ | | [address] | [place] [address] | unspecified whether | | 2015 | | [place], [place] | [phone] | with hypoxia or | | | | [address] | | hypercapnia (HCC); | | | | [phone] | | Allergic drug | | | | | | reaction; Lactic | | | | | | acidosis; | | | | | | Hypokalemia | +--------+ + + + + Social History + +-------+ +--------+------+ | Tobacco Use | Types | Packs/Day | Years | Date | | | | | Used | | + +-------+ +--------+------+ | Never Assessed | | | | | + +-------+ +--------+------+ + + + | Sex Assigned at | Date Recorded | | | | + + + | Not on file | | + + + documented as of this encounter Last Filed Vital Signs + + + + + | Vital Sign | Reading | Time Taken | Comments | + + + + + | Blood Pressure | 115/67 | 02/19/2016 10:49 AM | | | | | PDT | | + + + + + | Pulse | 82 | 02/19/2016 10:49 AM | | | | | PDT | | + + + + + | Temperature | 37.5 C (99.5 F) | 02/19/2016 10:49 AM | | | | | PDT | | + + + + + | Respiratory Rate | 16 | 02/19/2016 10:49 AM | | | | | PDT | | + + + + + | Oxygen Saturation | - | - | | + + + + + | Inhaled Oxygen | - | - | | | Concentration | | | | + + + + + | Weight | 52.8 kg (116 lb 8 | 02/19/2016 10:49 AM | | | | oz) | PDT | | + + + + + | Height | 162.6 cm (5' 4") | 02/19/2016 10:49 AM | | | | | PDT | | + + + + + | Body Mass Index | 20 | 02/19/2016 10:49 AM | | | | | PDT | | + + + + + documented in this encounter Discharge Summaries Chio Martinez MD - 02/19/2016 4:28 PM PDTFormatting of this note might be different fro m the original. Discharge Summaries by Chio Martinez MD at 02/19/16 8651 Author: Chio Martinez MD Service: (none) Author Type: Physician Filed: 02/19/16 1636 Date of Service: 02/19/161627 Status: Signed Factory Clerk: Chio Martinez MD (Physician) [facility] Service: Hospitalist Discharge Summary Date of Admission: 02/18/2016 Date of Discharge: 02/19/2016 Discharge Provider: Chio Martinez MD Treatment Team: Consulting Physician: Eduardo Iyer MD Admitting Provider: Eduardo Iyer MD Discharge Diagnoses: Principal Problem: Respiratory arrest (HCC) Active Problems: Allergic reaction caused by a drug Precordial pain Resolved Problems: * No resolved hospital problems. * Significant Diagnostic Studies: Echocardiogram showed ejection fraction of 65-70 percent. HOSPITAL COURSE: This is a 35-year-old female who otherwise is quite healthy and does not take any medi cations at home. She had root canal scheduled at her dentist's office yesterday. Shortly aft er injection with novocaine, she started feeling quite short of breath as if her airway was closing. When EMS arrived at the scene, she was intubated for airway protection. In the ER s he was extubated. Her vitals stabilized over the night. She was not having any stridor and s hortness of breath in the morning. Patient had some chest pains, hence the bone ends were do ne twice which were negative. EKG showed normal sinus rhythm. Echocardiogram also done which showed an ejection fraction of 65-70 percent. She was concerned about her dentist doing her root canal again. I tried calling the dentist's office but being a weekend I could not get in touch with anyone. Advised her to get in touch with her dentist's office the day after to pachceo, Sunday. I decided on discharging her with tramadol for pain as well as Augmentin for antibiotic coverage for a week for her tooth infection. So far she had been controlling her tooth ache with ibuprofen only at home. Vital Signs: BP 115/67 mmHg | Pulse 82 | Temp(Src) 99.5 F (37.5 C) (Oral) | Resp 16 | Ht 1.626 m (5' 4") | Wt 52.844 kg (116 lb 8 oz) | BMI 19.99 kg/m2 | SpO2 100% Patient is awake, alert, oriented to time, place and person Skin: Warm and supple Neck: No JVD Chest: Normal vesicular breath sounds, good air entry bilaterally CVS: S1S2 audible, no murmurs heard Abdomen: Soft, non tender, normal bowel sounds, no organomegaly Extremities: No pedal edema, clubbing or cyanosis Neurologic examination: No focal sensory or motor deficits Back examination: No CVA tenderness, no spinal tenderness Disposition: Home Condition: Stable No discharge procedures on file. Follow up: Per Pt None In 2 days Discharge took 25 minutes, to include final examination, discussion of admission, and prepa ration of prescriptions, instructions for on-going care, follow-up and documentation of disc harge summary. Medication List START taking these medications amoxicillin-clavulanate 875-125 MG per tablet QTY: 14 tablet Refills: 0 Commonly known as: AUGMENTIN Take 1 tablet by mouth 2 (two) times daily. traMADol 50 MG tablet QTY: 20 tablet Refills: 0 Commonly known as: ULTRAM Take 1-2 tablets by mouth every 6 (six) hours as needed for Pain. STOP taking these medications ibuprofen 400 MG tablet Commonly known as: MOTRIN Where to Get Your Medications These are the prescriptions that you need to scrap picker. You may get the following medications from any pharmacy - amoxicillin-clavulanate 875-125 MG per tablet - traMADol 50 MG tablet documented in this e ncounter Progress Notes Conversion Transaction, Provider Unknown - 02/19/2016 6:09 PM PDTFormatting of this note m ight be different from the original. Case Management by Marisol Nevarez RN at 02/19/161808 Author: Marisol Nevarez RN Service: (none) Author Type: Registered Nurse Filed: 02/19/161808 Date of Service: 02/19/161808 Status: Signed Factory Clerk: Marisol Nevarez RN (Registered Nurse) Attempted to meet with pt but she was discharged before CM rounded. onver chavo Transaction, Provider Unknown - 02/19/2016 7:30 AM PDT Nurse Progress Note by Tanya Sullivan RN at 02/19/16729 Author: Tanya Sullivan RN Service: (none) Author Type: Registered Nurse Filed: 02/19/16732 Date of Service: 02/19/16729 Status: Signed Factory Clerk: Tanya Sullivan RN (Registered Nurse) Around 0615 patient began c/o worsening tooth pain and a worsening feeling of light headedn ess, VSS BP was 108/66. Pt was encouraged to order breakfast. Pt stated she does not want to take pain medication unless it gets a lot more severe. Pt encouraged to inform RN if pain c ontinues to worsen before it gets out of control. Pt denied chest pain and/or arm numbness/t ingling. Tanya Sullivan RN onver chavo Transaction, Provider Unknown - 02/19/2016 5:17 AM PDT Nurse Progress Note by Tanya Sullivan RN at 02/19/16516 Author: Tanya Sullivan RN Service: (none) Author Type: Registered Nurse Filed: 02/19/16519 Date of Service: 02/19/16516 Status: Signed Factory Clerk: Tanya Sullivan RN (Registered Nurse) Pt slept for most of shift. Reports feeling better this AM, continues to c/o of sore throat but says tooth pain has improved. Pt denies chest pain, R arm pain/tingling or SOB for this shift. VSS. No other changes from previous assessment. Tanya Sullivan RN onver chavo Transaction, Provider Unknown - 02/18/2016 7:44 PM PDT Progress Notes by Sirisha Day RPH at 02/18/161943 Author: Sirisha Day RPH Service: (none) Author Type: Pharmacist Filed: 02/18/161943 Date of Service: 02/18/161943 Status: Signed Factory Clerk: Sirisha Day RPH (Pharmacist) Renal Dosing Monitoring: Santiago Sandoval 35 y.o. female Pharmacy dosing for renal function per Dr. Eduardo Iyer CREATININE: 0.59 (02/18/16 1025) Estimated creatinine clearance - 110.9 mL/min Plan per protocol: No medications need adjustment at this time. Pharmacy will continue to monitor changes in medication orders and renal function and will adjust accordingly. 02/18/2016 7:43 PM Pharmacist: Sirisha Day docume nted in this encounter H&P Notes Eduardo Iyer MD - 02/18/2016 1:43 PM PDTFormatting of this note might be diff erent from the original. H&P by Eduardo Iyer MD at 02/18/16 1343 Author: Eduardo Iyer MD Service: Hospitalist Author Type: Physician Filed: 02/18/16 7026 Date of Service: 02/18/16 1343 Status: Signed Factory Clerk: Eduardo Iyer MD (Physician) [facility] Service: Hospitalist Admission History & Physical Date of Admission: 02/18/2016 Requesting Physician: Dr. Gann, Emergency Department Reason for Admission: Respiratory arrest/? Reaction to anesthetic History Obtained From: patient, spouse, chart review, Quality of history: good CHIEF COMPLAINT: the patient is his radiation felt short of breath after being given anes thetic at dentist and res(piratory arrest on way to ED S/P intubation HISTORY OF PRESENT ILLNESS The patient is a 89 y.o. unknown with no significant past medical history except allergy t o latex, laparoscopic cholecystectomy, and childbirth.. Had been having headaches for the last 84 weeks, subsequently had a CT scan, was subsequen tly thought to have infected tooth, I subsequently was at the dentist today and was given No vocain then began having a difficulty breathing, patient stated palpitations, EMS was called , and improved the patient was in sinus tachycardia with heart rate of 120, and subsequently stopped breathing was given succinylcholine, etomidate and Versed and intubated. On arrival in Emergency Department CT scan and chest x-ray were done, labs were all within normal limits except a lactic acid of 2.6, CRP was less than 0.3, no acute findings on CT sc an, a chest x-ray likewise no acute finding, the patient became more, but there, and then th e patient started to become more awake, subsequently extubated and otherwise stable.. Hospitalist service called to have the patient observe further. By the time admitting hospitalist and the patient the patient was able to tell although wit h a hoarse voice, complaining of sore throat, the patient denied any previous medical histor y episode of fainting, along with the headache had been having substernal chest pressure lawanda t radiated down the right arm for the last 3 weeks exacerbated with activity and relieved by rest, she may also have had a little bit of shortness of breath at that time, a chest pain was accompanied by diaphoresis too. There is no family history of sudden cardiac or premature coronary artery disease. REVIEW OF SYSTEMS ROS obtained from patient, spouse, chart review. A comprehensive review of systems was negative except for items mentioned in HPI No past medical history on file. No past surgical history on file. Immunizations: Influenza: Not indicated Pneumoccocal: Not indicated Allergies Allergen Reactions Acetaminophen Other (See Comments) Unknown reaction Latex Other (See Comments) Per unknown Oxycodone Other (See Comments) Unknown (Not in a hospital admission) No mom is allergic to anesthetic, sister and mom had gallstones from 25-30, mom has diabete s mellitus and hypertension. History Social History Marital Status: Spouse Name: N/A Number of Children: N/A Years of Education: N/A Occupational History Not on file. Social History Main Topics Smoking status: Not on file Smokeless tobacco: Not on file Alcohol Use: Not on file Drug Use: Not on file Sexual Activity: Not on file Other Topics Concern Not on file Social History Narrative No narrative on file PHYSICAL EXAM BP 116/63 mmHg | Pulse 98 | Resp 14 | Wt 52.164 kg (115 lb) | SpO2 100% General Appearance: Alert, cooperative, no distress, appears stated age, voice hoarse Head: Normocephalic, without obvious abnormality, atraumatic Eyes: PERRL, conjunctiva/corneas clear, EOM's intact, Ears: Normal external ear canals, both ears Nose: Nares normal, septum midline, mucosa normal, no drainage or sinus tenderness Throat: Lips, mucosa, and tongue normal; teeth and gums normal Neck: Supple, symmetrical, trachea midline, no adenopathy; thyroid: no enlargement/tenderness/nodules; no carotid bruit or JVD Back: Symmetric, no curvature, ROM normal, no CVA tenderness Lungs: Clear to auscultation bilaterally, respirations unlabored Chest Wall: No tenderness or deformity Heart: Regular rate and rhythm, S1 and S2 normal, no murmur, rub or gallop Abdomen: Soft, non-tender, bowel sounds active all four quadrants, no masses, no organomegaly, positive laparoscopic scar Extremities: Extremities normal, atraumatic, no cyanosis or edema Pulses: 2+ and symmetric all extremities Skin: Skin color, texture, turgor normal, no rashes or lesions Lymph nodes: Cervical, supraclavicular, and axillary nodes normal Neurologic: CNII-XII intact, normal strength, sensation and reflexes throughout DATA CBC: Lab Results Component Value Date WBC 5.00 02/18/2016 RBC 3.85 02/18/2016 HGB 11.9 02/18/2016 HCT 34.7 02/18/2016 MCV 90.2 02/18/2016 MCH 31.0 02/18/2016 MCHC 34.4 02/18/2016 RDW 40.3 02/18/2016 PLT 164 02/18/2016 MPV 8.2 02/18/2016 DIFFTYPE AUTOMATED 02/18/2016 CMP: Lab Results Component Value Date NA 140 02/18/2016 K 3.0* 02/18/2016 CL 110* 02/18/2016 CO2 19* 02/18/2016 ANIONGAP 14 02/18/2016 GLUF 111* 02/18/2016 BUN 11 02/18/2016 CREATININE 0.59 02/18/2016 BCR 19 02/18/2016 CA 7.4* 02/18/2016 PROT 6.8 02/18/2016 ALB 3.4 02/18/2016 GLOB 3.4 02/18/2016 BILITOT 0.6 02/18/2016 ALP 41 02/18/2016 AST 13 02/18/2016 ALT 17 02/18/2016 EGFR NOT ABLE TO CALCULATE 02/18/2016 Calcium: No results found for: CALCIUM Magnesium: No results found for: MG Phosphorus: No results found for: PHOS PT/INR: Lab Results Component Value Date INR 1.0 02/18/2016 PTT: Lab Results Component Value Date APTT 24 02/18/2016 [APTT} Troponin: No results found for: TROPONINI CPK: Lab Results Component Value Date CKTOTAL 128 02/18/2016 CKMB: Lab Results Component Value Date CKMB 1.4 02/18/2016 U/A: Lab Results Component Value Date CLARITYU CLEAR 02/18/2016 LEUKOCYTESUR NEGATIVE 02/18/2016 NITRITE NEGATIVE 02/18/2016 UROBILINOGEN NORMAL 02/18/2016 PHUR 6.0 02/18/2016 BLOODU NEGATIVE 02/18/2016 KETONES TRACE 02/18/2016 BILIRUBINUR NEGATIVE 02/18/2016 GLUCOSEU NEGATIVE 02/18/2016 HgBA1c: No results found for: HGBA1C, LABGLYC TSH: No results found for: TSH, TSHNEO, TSHREFLEX Amylase: No results found for: AMYLASE Lipase: No results found for: LIPASE Ct Head Non-con 02/18/[address] of the brain without contrast. Xr Chest Ap Portable 02/18/2016 1. Endotracheal tube terminates in close proximity with the анна. Recommend w ithdrawal by 2 to 3 cm. 2. Critical result: The imaging findings are discussed with the ord ering clinician by telephone at 12:58 PM. Xr Chest Ap Portable 02/18/2016 1. Right mainstem endotracheal intubation. Retract the ET tube 6 cm for optimal positioning. This was discussed with Dr. Gann at 10:40 AM date of study. LEM LIST Principal Problem: Respiratory arrest (HCC) Active Problems: Allergic reaction caused by a drug Precordial pain ASSESSMENT & PLAN Patient Active Hospital Problem List: Respiratory arrest (HCC) (02/18/2016) Assessment: ? From reaction to novocaine versus other causes with the patient having ches t pain with exertion for the last 3 weeks Plan: Observe, will continue with serial cardiac enzymes and if the continued to be negat kevin stress test tomorrow, ordered echocardiogram given the patient's age. Heparin for deep v ein thrombosis prophylaxis Allergic reaction caused by a drug (02/18/2016) Assessment: Patient is also allergic to latex? Patient exposed to latex along with the no vocaine Plan: Have added novocaine to the patient's list of allergies Precordial pain (02/18/2016) Assessment: Patient did not have CPR and precordial pain was present prior to respiratory arrest. Plan: As above I explained radiology and lab findings, plan of care and management to patient and at bedside, told them somebody else from the hospitalist service will see patient later. Sujit cortés and verbalized understanding and agreement with plan of care and did not have any more questions for me after my interaction with them. More than 70 minutes spent on adm itting this patient face to face at bedside, taking history and physical examination, more t delgado 65% of this spent on explaining plan of care to patient and at bedside, kyrie israel,formulating a plan and placing orders coordinating care with other providers well as Computerized Air Intelligence Specialist. Other recommendations for management of this patient will be depkarmen dumont upon the patient's clinical course. ns when stable and improved in 24 to 48 hours. Disposition: Observe in CDU Disposition: Admit as Inpatient to Acute Care Floor Dictation software, MD2U, used which may contain error for similar sounding words even af ter review. Personal communication requested for any clarification. Portions of this chart may have been copied from previous notes for continuity of care. Code Status: Full Code Primary Care Physician: PER PT NONE Eduardo Iyer MD 02/18/2016 documented in this encounter ED Notes Conversion Transaction, Provider Unknown - 02/18/2016 1:41 PM PDTFormatting of this note m ight be different from the original. ED Notes by Mary Pastrana RN at 02/18/16 1341 Author: Mary Pastrana RN Service: (none) Author Type: Registered Nurse Filed: 02/18/16 1341 Date of Service: 02/18/16 134 Status: Signed Factory Clerk: Mary Pastrana RN (Registered Nurse) PT is alert adn answering questions appropriately Mary Pastrana RN 02/18/16 1341 onver chavo Transaction, Provider Unknown - 02/18/2016 1:06 PM PDT ED Notes by Mary Pastrana RN at 02/18/16 1306 Author: Mary Pastrana RN Service: (none) Author Type: Registered Nurse Filed: 02/18/16 1312 Date of Service: 02/18/16 1306 Status: Signed Factory Clerk: Mary Pastrana RN (Registered Nurse) PT is breathing on her own, following commands. RT remains here. Extubated adn following co mmands. Mary Pastrana RN 02/18/16 1312 onver chavo Transaction, Provider Unknown - 02/18/2016 12:49 PM PDT ED Notes by Mary Pastrana RN at 02/18/16 1249 Author: Mary Pastrana RN Service: (none) Author Type: Registered Nurse Filed: 02/18/16 1249 Date of Service: 02/18/16 1249 Status: Signed Factory Clerk: Mary Pastrana RN (Registered Nurse) Continue trail to extubate. PT is coming arround and coughing now. NOt quite following comm ands.WIll wait to extubate Mary Pastrana RN 02/18/16 1249 onver chavo Transaction, Provider Unknown - 02/18/2016 12:39 PM PDT ED Notes by Mary Pastrana RN at 02/18/16 1239 Author: Mary Pastrana RN Service: (none) Author Type: Registered Nurse Filed: 02/18/16 1240 Date of Service: 02/18/16 1239 Status: Signed Factory Clerk: Mary Pastrana RN (Registered Nurse) Pt is bucking the tube. Respiratory in the room. Dr Gann notified adn states "lets try a trial for possible extubation". Propofol is stopped. Mary Pastrana RN 02/18/16 1240 onver chavo Transaction, Provider Unknown - 02/18/2016 11:06 AM PDT ED Notes by Mary Pastrana RN at 02/18/16 1106 Author: Mary Pastrana RN Service: (none) Author Type: Registered Nurse Filed: 02/18/16 1108 Date of Service: 02/18/16 1106 Status: Signed Factory Clerk: Mary Pastrana RN (Registered Nurse) PT is taken from room t o CT with RT tech and RN. PT is paralyzed at this time. in the waiting room. Mary Pastrana RN 02/18/16 1108 onver chavo Transaction, Provider Unknown - 02/18/2016 10:51 AM PDT ED Notes by Mary Pastrana RN at 02/18/16 1051 Author: Mary Pastrana RN Service: (none) Author Type: Registered Nurse Filed: 02/18/16 1052 Date of Service: 02/18/16 1051 Status: Signed Factory Clerk: Mary Pastrana RN (Registered Nurse) Dr Gann int he room during ROCk injection Mary Pastrana RN 02/18/16 1052 onver chavo Transaction, Provider Unknown - 02/18/2016 10:33 AM PDT ED Notes by Mary Pastrana RN at 02/18/16 1033 Author: Mary Pastrana RN Service: (none) Author Type: Registered Nurse Filed: 02/18/16 1035 Date of Service: 02/18/16 1033 Status: Signed Factory Clerk: Mary Pastrana RN (Registered Nurse) PT has been very difficult to chemically restrain and sedate. EMS here for 30 minutes after arrival for extra help. Mary Pastrana RN 02/18/16 1035 aylor Gann MD - 02/18/2016 9:45 AM PDT ED Provider Notes by Taylor Gann MD at 02/18/16 0945 Author: Taylor Gann MD Service: Emergency Department Author Type: Physician Filed: 02/18/16 2333 Date of Service: 02/18/16 0945 Status: Addendum Factory Clerk: Taylor Gann MD (Physician) Related Notes: Original Note by Taylor Gann MD (Physician) filed at 02/18/16 2322 Procedure Orders: 1. Critical Care [[id number]] ordered by Taylor Gann MD at 02/18/16 2924 [facility] Department of Emergency Medicine 9:46 AM History of Present Illness Patient Identification Santiago Sandoval is a 35 y.o. female. Patient information was obtained from EMS personnel. History/Exam limitations: respiratory distress. Patient presented to the Emergency Department by: Chief Complaint Chief Complaint Patient presents with Altered Mental Status patient was at dentist and received a novacaine w/epi shot and suddenly had difficulty br eathing, assessed by EMS and on way here went into resp arrest Chief complaint: Respiratory failure Location: Pulmonary Quality: respiratory arrest Severity: Severe Onset: This morning Modifying factors: Given Care prior to arrival: EMS route Associated symptoms: SOB and medication reaction Context: The patient was at the dentist office this morning and received an intraoral injec tion of Polocaine and lidocaine with epi. After receiving the injection, the patient began h aving difficulty breathing. 911 was called. Upon EMS arrival the patient's breathing was rep ortedly swallow and agonal. When the patient was transferred to the stretcher she stopped br eathing. EMS intubated the patient. En route the patient was in sinus tach with a rate of 12 0, but had clear but diminished lungs sounds bilaterally and her BP was normal. The patient received 100 succs, 20 etomidate and 5 versed by EMS. EMS reports that as she was intubated her posterior pharynx was mildly erythematous, but no edema or swelling was noted. PCP: PER PT NONE Review of Systems limited due to intubation and AMS Past Medical History Diagnosis Date Respiratory arrest (HCC) 02/18/2016 Allergic reaction caused by a drug 02/18/2016 Precordial pain 02/18/2016 No past surgical history on file. Prior to Admission medications Not on File Allergies Allergen Reactions Novocaine [Procaine] Other (See Comments) Respiratory arrest Acetaminophen Other (See Comments) Unknown reaction Latex Other (See Comments) Per unknown Oxycodone Other (See Comments) Unknown History Social History Marital Status: Spouse Name: N/A Number of Children: N/A Years of Education: N/A Occupational History Not on file. Social History Main Topics Smoking status: Not on file Smokeless tobacco: Not on file Alcohol Use: Not on file Drug Use: Not on file Sexual Activity: Not on file Other Topics Concern Not on file Social History Narrative No narrative on file No family history on file. Physical Exam BP 110/73 mmHg | Pulse 110 | Resp 17 | Wt 52.164 kg (115 lb) | SpO2 100% Vital signs interpretation: Tachycardic otherwise normal Pulse Oximetry interpretation: Normal General: Intubated Eyes: Normal inspection, non-icteric, non-injected, PERRL with pupils 2-3 mm and questiona duc reactive ENT: Ears normal, TMs normal Nose normal O/P ETT in place Neck: Normal inspection Supple, no lymphadenopathy Back: Normal inspection CV: Rate and rhythm normal No murmurs Respiratory: Bilaterally clear to auscultation No rales, wheezing or rhonchi Abdomen: Soft, non-distended, non-tender No masses, rebound or guarding Extremities: Non tender, painless ROM Skin: Color normal Warm and dry No rash Neuro: Moving all extremities Does not follow commands Medical Decision Making and Emergency Department Course ED Department Course Patient presents to ED with complaints of respiratory arrest after receiving an intraoral i njection at her dentist's office. My DDx includes, but is not limited to: anaphylaxis, medic ation reaction, respiratory arrest, metabolic abnormality, electrolyte abnormality, vs other . Will order CXR, labs and give epinephrine, Solu-Medrol, and diphenhydramine. 9:52 AM I spoke with Dr. Mccormack, B2B Appointment Setter, to give her a head's up on the patient. 9:58 AM The patient is being combative at this time and staff is requesting more medication at this time. I will order Versed for the patient. 10:08 AM Patient rechecked. The patient seems to be relaxed at this time. The ET tubes has been pulled from 27-23 10:42 AM The patient has become increasingly combative. 10:43 AM Patient rechecked. I have got prior hx of the patient which includes that she has had severe migraines and dizziness for the past few weeks and is on ibuprofen and z-pack. Wi ll CT of the head with this new hx. 10:47 AM The patient is still moving, will give rocuronium. 10:49 AM I am bedside with the patient observing vitals while she receives rocuronium. She is stable and ready to be transported to imaging. Elevated lactic acid of 2.6 and low potassium of 3.0. IVF given Patient has a normal CT of the head 11:[address] Mccormack on the patient 12:52 PM The patient's is bedside with the patient and she is responding well at th is time and becoming cooperative. Radiologist has contacted and indicates that the tube will need to be pulled back agin, how ever this has already been done(2 cm additional to the original pull back) 1:03 PM According to respiratory therapist the patient is able to follow commands slowly an d open her eyes. 1:06 PM The patient is responsive at this time and is breathing on her own and able to foll ow specific commands easily. I will prepare the patient to be extubated. The nurse spoke wit h the patient's dentist, the patient was given Polocaine and lidocaine with epinephrine. 1:09 PM The patient was extubated successfully, her O2 is at 100%. The patient is able to s wallow on her own and her throat is mildly erythematous otherwise normal. 1:33 PM The patient is sleeping comfortably at this time and O2 stats are stable. I tried c alling Dr. Mccormack to update her on the patient and that I felt the patient could be admitte d to the floor instead of the ICU. 1:46 PM Pt's case d/w Dr. Iyer, hospitalist, who accepts the patient for admission. 1:48 PM Unable to reach Dr. Biggs again, I called the ICU and informed them of the patient 's status change. They were already aware. 2:19 PM The patient is able to speak, but does have a horse voice. Filed Vitals: 02/18/16 1638 02/18/16 1644 02/18/16 1659 02/18/16 1940 BP: 106/64 112/73 115/70 Pulse: 90 94 95 92 Temp: 98.6 F (37 C) 99.3 F (37.4 C) TempSrc: Oral Resp: 18 16 16 Height: 1.626 m (5' 4") Weight: 52.844 kg (116 lb 8 oz) SpO2: 97% 98% 97% 99% Records Reviewed Old medical records. Nursing notes. Laboratory Evaluation Results Procedure Component Value Ref Range Date/Time Cardiac Panel [[id number]] (Abnormal) Collected: 02/18/16 1025 Order Status: Completed Updated: 02/18/16 0539 WBC 5.00 3.80 - 11.00 K/uL RBC 3.85 3.70 - 5.10 M/uL HGB 11.9 11.3 - 15.5 g/dL HCT 34.7 34.0 - 46.0 % MCV 90.2 80.0 - 100.0 fl MCH 31.0 27.0 - 34.0 pg MCHC 34.4 32.0 - 35.5 g/dL RDW SD 40.3 37 - 53 fl PLT 164 150 - 400 K/uL MPV 8.2 fl DIFF TYPE AUTOMATED NEUTROPHILS 55.86 % LYMPHOCYTES 36.56 % MONOCYTES 6.02 % EOSINOPHILS 0.97 % BASOPHILS 0.59 % NEUTROPHILS ABS 2.79 1.90 - 7.40 K/uL LYMPHOCYTES ABS 1.83 1.00 - 3.90 K/uL MONOCYTES ABS 0.30 0.00 - 0.80 K/uL EOSINOPHILS ABS 0.05 0.00 - 0.50 K/uL BASOPHILS ABS 0.03 0.00 - 0.10 K/uL SODIUM 140 135 - 143 mmol/L POTASSIUM 3.0 (L) 3.5 - 4.9 mmol/L CHLORIDE 110 (H) 99 - 109 mmol/L CO2 19 (L) 23 - 32 mmol/L ANION GAP AGAP 14 5 - 20 mmol/L GLUCOSE 111 (H) 65 - 99 mg/dL BUN 11 8 - 25 mg/dL CREATININE 0.59 0.50 - 1.00 mg/dL BUN/CREAT 19 CALCIUM 7.4 (L) 8.5 - 10.5 mg/dL TOTAL PROTEIN 6.8 6.3 - 8.2 g/dL Albumin 3.4 (L) 3.6 - 5.0 g/dL GLOBULIN 3.4 1.3 - 4.9 g/dL A/G 1.0 1.0 - 2.4 TBIL 0.6 0.1 - 1.5 mg/dL ALK PHOS 41 35 - 115 U/L AST 13 10 - 45 U/L ALT 17 10 - 65 U/L EGFR NOT ABLE TO CALCULATE >60 mL/min/1.73m2 CPK 128 30 - 240 U/L INR 1.0 APTT 24 23 - 32 seconds MMB 1.4 0.5 - 3.6 ng/mL CK-MB Index 1.1 Urinalysis (reflex to microscopic/reflex to culture) [[id number]] (Abnormal) Collected: 02/18/16 1021 Order Status: Completed Specimen Information: Urine, Catheter Updated: 02/18/16 8873 COLOR UA YELLOW CLARITY CLEAR Specific [place], UA 1.018 1.002 - 1.030 LEUKOCYTE ESTERASE NEGATIVE NEGATIVE NITRITE NEGATIVE NEGATIVE UROBILINOGEN NORMAL <1.1 mg/dL PROTEIN NEGATIVE NEGATIVE mg/dL PH,URINE 6.0 5.0 - 8.0 BLOOD NEGATIVE NEGATIVE KETONES TRACE (A) NEGATIVE mg/dL BILIRUBIN NEGATIVE NEGATIVE GLUCOSE NEGATIVE NEGATIVE mg/dL Drugs of Abuse Screen, UR (Hospital And ED Only) [[id number]] (Abnormal) Collected: 06/27 1021 Order Status: Completed Specimen Information: Urine / Urine, Catheter Updated: 1752 AMPHETAMINE/METHAMPHETAMINE NEGATIVE NEGATIVE BARBITUATES NEGATIVE NEGATIVE BENZODIAZEPINE POSITIVE (A) NEGATIVE COCAINE NEGATIVE NEGATIVE METHADONE NEGATIVE NEGATIVE OPIATES NEGATIVE NEGATIVE PCP NEGATIVE NEGATIVE THC NEGATIVE NEGATIVE Blood Culture Set 2 [[id number]] Collected: 02/18/16 1229 Order Status: Sent Specimen Information: Blood / Blood Updated: 02/18/16 1637 Blood Culture Set 1 [[id number]] Collected: 02/18/16 1203 Order Status: Sent Specimen Information: Blood / Blood Updated: 02/18/16 1636 C-reactive protein [[id number]] Collected: 02/18/16 1025 Order Status: Completed Specimen Information: Blood Updated: 02/18/16 1113 CRP <0.3 <0.5 mg/dL Septic Lactic Acid [[id number]] (Abnormal) Collected: 02/18/16 1025 Order Status: Completed Updated: 02/18/16 1107 LACTIC ACID 2.6 (H) 0.4 - 2.0 mmol/L Ammonia Level [[id number]] Collected: 02/18/16 1025 Order Status: Completed Specimen Information: Blood Updated: 02/18/16 1104 AMMONIA 12 <33 umol/L Urine test (LAB) [[id number]] Collected: 02/18/16 1021 Order Status: Completed Specimen Information: Urine / Urine, Catheter Updated: 1032 Preg Test, Ur NEGATIVE NEGATIVE I personally reviewed the lab results and they have been posted to the chart. Pertinent po sitive and negative findings have been addressed appropriately. Radiology and EKG Evaluation EKG 1057 Sinus tachycardic rhythm at a rate of 113. Suspect arm lead reversal No ectopy. No STEMI or other ischemic changes. This EKG was interpreted by me independently. Taylor Gann MD Imaging Results XR Chest AP portable (Final result) Result time: 02/18/16 23:06:45 Notes Recorded by Nate Macias PA-C on 02/18/2016 at 5:39 PM Patient is currently admitted and being treated inpatient ED Interpretation Documented by Taylor Gann MD (02/18/16 23:06:45, [facility] Emergency Department, Emergency Medicine) ETT near the анна. No infiltrates. No effusion. No pneumothorax. Normal cardiac shadow. Normal mediastinum. This CXR was interpreted by me independently. Taylor Gann MD Final result by Rad Results In Abelardo (02/18/16 12:58:49) Impression: 1. Endotracheal tube terminates in close proximity with the анна. Recommend withdrawal by 2 to 3 cm. 2. Critical result: The imaging findings are discussed with the ordering clinician by tele phone at 12:58 PM. Narrative: LALO 60 TRAUMA 11/11/1860 89 years XR CHEST 1 VIEW 02/18/2016 12:35 PM INDICATION: Repositioning of endotracheal tube COMPARISON: 02/18/2016 TECHNIQUE: Chest 1 view, AP view of the chest FINDINGS: The endotracheal tube is retracted but still terminates very close to the анна . Recommend withdrawal by 2 to 3 cm. The NG tube is stable. There is no pneumothorax. The caridad ngs are clear. Improving aeration of the medial left lower lobe is demonstrated. CT Head Non-Con (Final result) Result time: 02/18/16 11:16:39 Final result by Rad Results In Abelardo (02/18/16 11:16:39) Impression: 1. Normal CT of the brain without contrast. Narrative: HISTORY: Head injury. COMPARISON: None. TECHNIQUE: 5-mm axial noncontrast CT images of the brain using automated exposure control were acquire d from the foramen magnum through the cranial vertex. FINDINGS: The cortical sulci, basal cisterns, and ventricles appear within normal limits. There is n o intracranial hemorrhage or evidence of mass effect or midline shift. The osseous structur es appear unremarkable. No evidence of sinusitis is seen. Mastoid air cells are clear. XR Chest AP portable (Final result) Result time: 02/18/16 11:31:35 Notes Recorded by Nate Macias PA-C on 02/18/2016 at 5:40 PM Patient is currently admitted and being treated inpatient Final result by Rad Results In Abelardo (02/18/16 11:31:35) Impression: 1. Right mainstem endotracheal intubation. Retract the ET tube 6 cm for optimal positioni ng. This was discussed with Dr. Gann at 10:40 AM date of study. Narrative: HISTORY: Respiratory failure. COMPARISON: None. TECHNIQUE: AP portable film of the chest at 1032 hours FINDINGS: Right mainstem endotracheal intubation. The tip should be retracted 6 cm for optimal positi oning. Hyperinflation of the right lung, decreased aeration and minimal airspace density at the left lung probably due to atelectasis. Heart size is normal. NG tube extends into the st omach and the tip is not seen. ED Interpretation Documented by Taylor Gann MD (02/18/16 10:43:14, [facility] Emergency Department, Emergency Medicine) R mainstem intubation. ED Diagnoses Final diagnoses Respiratory failure, unspecified chronicity, unspecified whether with hypoxia or hypercapn ia (HCC) Allergic drug reaction Lactic acidosis Hypokalemia Disposition: ED Disposition Admit/Observation Requested Unit:: ICU Bed request special needs: Telemetry Diagnosis?: Respiratory Failure Taylor Gann MD Procedures Additional Documentation Critical Care Performed by: TAYLOR GANN Authorized by: TAYLOR GANN Total critical care time: 120 minutes Critical care was necessary to treat or prevent imminent or life-threatening deterioration of the following conditions: respiratory failure. Critical care was time spent personally by me on the following activities: development of t reatment plan with patient or surrogate, discussions with consultants, ordering and performi ng treatments and interventions, gastric intubation, re-evaluation of patient's condition, o btaining history from patient or surrogate, pulse oximetry, examination of patient, ventilat or management, ordering and review of radiographic studies, evaluation of patient's response to treatment, ordering and review of laboratory studies and interpretation of cardiac outpu t measurements. Attending Note: Documentation assistance provided by Sheila Roth (Scribe). Information recorded by the scribe has been reviewed and validated by me. I yeni watson with its contents. MD Taylor Huggins MD 02/18/16 9850 Taylor Gann MD 02/18/16 9651 onversion Transact ion, Provider Unknown - 02/18/2016 9:41 AM PDTFormatting of this note might be different fr om the original. ED Notes by Alicia Maynard RN at 02/18/16940 Author: Alicia Maynard RN Service: (none) Author Type: Registered Nurse Filed: 02/18/16940 Date of Service: 02/18/16940 Status: Signed Factory Clerk: Alicia Maynard RN (Registered Nurse) Bed: 12 Expected date: Expected time: Means of arrival: Comments: 1722 docume nted in this encounter Plan of Treatment Not on filedocumented as of this encounter Procedures + +--------+ + + + | Procedure Name | Priori | Date/Time | Associated Diagnosis | Comments | | | ty | | | | + +--------+ + + + | ECHO COMPLETE | Routin | 02/19/2016 | | Results for this | | | e | 12:12 PM | | procedure are in the | | | | PDT | | results section. | + +--------+ + + + | ECG 12 LEAD | Routin | 02/19/2016 | | Results for this | | | e | 10:24 AM | | procedure are in the | | | | PDT | | results section. | + +--------+ + + + | TROPONIN I | Routin | 02/19/2016 | | Results for this | | | e | 10:11 AM | | procedure are in the | | | | PDT | | results section. | + +--------+ + + + | EXTERNAL LAB: CBC | Routin | 02/19/2016 | | Results for this | | | e | 3:03 AM | | procedure are in the | | | | PDT | | results section. | + +--------+ + + + | TROPONIN I | Routin | 02/19/2016 | | Results for this | | | e | 3:03 AM | | procedure are in the | | | | PDT | | results section. | + +--------+ + + + | CK-MB | Routin | 02/19/2016 | | Results for this | | | e | 3:03 AM | | procedure are in the | | | | PDT | | results section. | + +--------+ + + + | PROTIME INR | Routin | 02/19/2016 | | Results for this | | | e | 3:03 AM | | procedure are in the | | | | PDT | | results section. | + +--------+ + + + | PHOSPHORUS | Routin | 02/19/2016 | | Results for this | | | e | 3:03 AM | | procedure are in the | | | | PDT | | results section. | + +--------+ + + + | MAGNESIUM | Routin | 02/19/2016 | | Results for this | | | e | 3:03 AM | | procedure are in the | | | | PDT | | results section. | + +--------+ + + + | LACTIC ACID | Routin | 02/19/2016 | | Results for this | | | e | 3:03 AM | | procedure are in the | | | | PDT | | results section. | + +--------+ + + + | CK TOTAL | Routin | 02/19/2016 | | Results for this | | | e | 3:03 AM | | procedure are in the | | | | PDT | | results section. | + +--------+ + + + | BASIC METABOLIC | Routin | 02/19/2016 | | Results for this | | PANEL | e | 3:03 AM | | procedure are in the | | | | PDT | | results section. | + +--------+ + + + | XR CHEST 1 VIEW | Routin | 02/18/2016 | | Results for this | | | e | 12:35 PM | | procedure are in the | | | | PDT | | results section. | + +--------+ + + + | CULTURE, BLOOD, 2ND | Timed | 02/18/2016 | | Results for this | | SPECIMEN (NON-ORD) | | 12:29 PM | | procedure are in the | | | | PDT | | results section. | + +--------+ + + + | CULTURE, BLOOD | Timed | 02/18/2016 | | Results for this | | | | 12:03 PM | | procedure are in the | | | | PDT | | results section. | + +--------+ + + + | CT HEAD WO CONTRAST | Routin | 02/18/2016 | | Results for this | | | e | 11:11 AM | | procedure are in the | | | | PDT | | results section. | + +--------+ + + + | ECG 12 LEAD | Routin | 02/18/2016 | | Results for this | | | e | 10:57 AM | | procedure are in the | | | | PDT | | results section. | + +--------+ + + + | XR CHEST 1 VIEW | Routin | 02/18/2016 | | Results for this | | | e | 10:37 AM | | procedure are in the | | | | PDT | | results section. | + +--------+ + + + | HISTORICAL LAB PANEL | Routin | 02/18/2016 | | Results for this | | RESULT | e | 10:25 AM | | procedure are in the | | | | PDT | | results section. | + +--------+ + + + | C-REACTIVE PROTEIN | Routin | 02/18/2016 | | Results for this | | | e | 10:25 AM | | procedure are in the | | | | PDT | | results section. | + +--------+ + + + | LACTIC ACID | Routin | 02/18/2016 | | Results for this | | | e | 10:25 AM | | procedure are in the | | | | PDT | | results section. | + +--------+ + + + | AMMONIA | Routin | 02/18/2016 | | Results for this | | | e | 10:25 AM | | procedure are in the | | | | PDT | | results section. | + +--------+ + + + | DRUGS OF ABUSE | Routin | 02/18/2016 | | Results for this | | SCREEN, URINE (H) | e | 10:21 AM | | procedure are in the | | | | PDT | | results section. | + +--------+ + + + | URINALYSIS, REFLEX | Routin | 02/18/2016 | | Results for this | | MICROSCOPIC AND/OR | e | 10:21 AM | | procedure are in the | | CULTURE | | PDT | | results section. | + +--------+ + + + | HCG, URINE, QUAL | Routin | 02/18/2016 | | Results for this | | | e | 10:21 AM | | procedure are in the | | | | PDT | | results section. | + +--------+ + + + | POC GLUCOSE | Routin | 02/18/2016 | | Results for this | | | e | 9:56 AM | | procedure are in the | | | | PDT | | results section. | + +--------+ + + + documented in this encounter Results ECHO Complete (02/19/2016 12:12 PM PDT) + + | Specimen | + + | | + + + + + | Impressions | Performed At | + + + | 1. Overall left ventricular systolic function is normal with, an EF | | | between 65 - 70 %. 2. Left ventricular wall thickness is normal. 3. | | | No regional wall motion abnormalities. 4. The right ventricle is | | | normal in size and function. 5. The left atrium is normal in size. | | | 6. The aortic valve is trileaflet, and appears anatomically normal. No | | | aortic stenosis or regurgitation. 7. There is trace mitral | | | regurgitation. 8. There is no definite evidence of pulmonary | | | hypertension. 9. There is no pericardial effusion. 10. There is no | | | definite coarctation. | | + + + + + + | Narrative | Performed At | + + + | Patient Name: SANTIAGO SANDOVAL Date of : 1980 | | | Performing Physician: Mehran Alicea MD | | | | | | INDICATIONS Shortness of breath, Chest pain | | | CONCLUSIONS 1. Overall left ventricular systolic | | | function is normal with, an EF between 65 - 70 %. 2. Left ventricular | | | wall thickness is normal. 3. No regional wall motion abnormalities. | | | 4. The right ventricle is normal in size and function. 5. The left | | | atrium is normal in size. 6. The aortic valve is trileaflet, and | | | appears anatomically normal. No aortic stenosis or regurgitation. 7. | | | There is trace mitral regurgitation. 8. There is no definite evidence | | | of pulmonary hypertension. 9. There is no pericardial effusion. 10. | | | There is no definite coarctation. FINDINGS -------- ECG rhythm: | | | Sinus rhythm. Study: A 2-dimensional transthoracic echocardiogram | | | with m-mode, spectral and color flow Doppler was perfomed. Study: | | | This was a technically adequate study. Left Ventricle: Overall left | | | ventricular systolic function is normal with, an EF between 65 - 70 %. | | | Left Ventricle: The left ventricle cavity size is normal. Left | | | Ventricle: Left ventricular wall thickness is normal. Left Ventricle: | | | No regional wall motion abnormalities. Left Ventricle: The diastolic | | | filling pattern is normal for the age of the patient. Right | | | Ventricle: The right ventricle is normal in size and function. Left | | | Atrium: The left atrium is normal in size. Right Atrium: The right | | | atrium is normal in size. Aortic Valve: The aortic valve is | | | trileaflet, and appears anatomically normal. No aortic stenosis or | | | regurgitation. Mitral Valve: There is trace mitral regurgitation. | | | Mitral Valve: Minimal thickening of the anterior mitral valve leaflet. | | | Mitral Valve: There is minimal thickening of the posterior mitral | | | valve leaflet. Tricuspid Valve: The tricuspid valve appears | | | structurally normal. Tricuspid Valve: [id number] tricuspid | | | regurgitation present. Tricuspid Valve: Right ventricular systolic | | | pressure (pulmonary artery systolic pressure) is normal at < 35 mmHg. | | | Tricuspid Valve: There is no definite evidence of pulmonary | | | hypertension. Pulmonic Valve: Pulmonic valve appears structurally | | | normal. Pulmonic Valve: Mild pulmonic regurgitation. Pericardium: | | | There is no pericardial effusion. IVC/Hepatic Veins: The inferior | | | vena cava is normal in size and collapses > 50 % with sniff, | | | indicating normal central venous pressures. Aorta: There is no | | | definite coarctation. Mass: No mass visualized Thrombus: No clot | | | visualized Thrombus: No vegetation visualized. MEASUREMENTS | | | LA Major: 3.66 cm EDV(Teich): 83.43 ml IVSd: | | | 0.82 cm LVIDd: 4.30 cm LVPWd: 0.81 cm LVOT Diam: 1.96 cm | | | %FS: 33.68 % EF(Teich): 62.78 % ESV(Teich): 31.05 ml | | | IVSs: 0.88 cm LVIDs: 2.85 cm LVPWs: 1.24 cm SV(Teich): | | | 52.38 ml RA Major: 4.48 cm RVIDd: 2.71 cm LVEF MOD A2C: | | | 63.17 % SV MOD A2C: 44.67 ml LVEF MOD A4C: 68.06 % SV MOD | | | A4C: 46.79 ml EF Biplane: 63.36 % LVEDV MOD BP: 71.33 ml | | | LVESV MOD BP: 26.13 ml LVEDV MOD A2C: 70.71 ml LVLd A2C: | | | 7.36 cm LVEDV MOD A4C: 68.74 ml LVLd A4C: 7.01 cm LVESV MOD | | | A2C: 26.04 ml LVLs A2C: 5.90 cm LVESV MOD A4C: 21.95 ml | | | LVLs A4C: 4.93 cm LAESV(A-L): 22.80 ml LAESV Index (A-L): | | | 14.61 ml/m2 LAAs A2C: 7.87 cm2 LAESV A-L A2C: 17.46 ml LALs | | | A2C: 3.01 cm LAAs A4C: 10.27 cm2 LAESV A-L A4C: 22.05 ml | | | LALs A4C: 4.06 cm Ao Diam: 2.52 cm AV Cusp: 2.00 cm LA | | | Diam: 3.48 cm LA/Ao: 1.38 %FS: 31.63 % EDV(Teich): | | | 97.70 ml EF(Teich): 59.66 % ESV(Teich): 39.41 ml IVSd: | | | 0.70 cm IVSs: 0.96 cm LVIDd: 4.60 cm LVIDs: 3.14 cm | | | LVPWd: 0.72 cm LVPWs: 1.32 cm SV(Teich): 58.29 ml D-E | | | Excursion: 1.69 cm E-F [place]: 0.10 m/s IVC diameter: 1.89 | | | cm IVC collapse: 0.16 cm IVC % collapse: 89.40 % HR: 91.26 | | | BPM AV maxP.23 mmHg AV meanP.97 mmHg AV Vmax: | | | 1.34 m/s AV Vmean: 0.91 m/s AV VTI: 25.06 cm GALE Vmax: | | | 2.78 cm2 GALE (VTI): 2.66 cm2 LVCI Dopp: 3.20 l/minm2 LVCO | | | Dopp: 4.99 l/min HR: 74.74 BPM LVOT maxP.13 mmHg LVOT | | | meanP.18 mmHg LVSI Dopp: 42.81 ml/m2 LVSV Dopp: 66.79 | | | ml LVOT Vmax: 1.23 m/s LVOT Vmean: 0.83 m/s LVOT VTI: | | | 22.08 cm MV A Kwame: 0.57 m/s MV DecT: 147.56 ms MV E Kwame: | | | 1.13 m/s MV E/A Ratio: 1.97 MV PHT: 41.60 ms MVA By PHT: | | | 5.28 cm2 MV A Dur: 117.64 ms Septal e': 0.15 m/s Septal E/e': | | | 7.24 Lateral e': 0.18 m/s Lateral E/e': 6.29 P Vein A: | | | 0.35 m/s P Vein A Dur: 93.42 ms P Vein D: 0.50 m/s P Vein | | | S/D Ratio: 1.15 P Vein S: 0.58 m/s HR: 84.17 BPM PV maxPG: | | | 3.63 mmHg PV meanP.91 mmHg PV Vmax: 0.95 m/s PV | | | Vmean: 0.64 m/s PV VTI: 21.93 cm RAP: 5 mmHg RVSP: | | | 22.64 mmHg TR maxP.64 mmHg TR Vmax: 2.09 m/s TV A Kwame: | | | 0.51 m/s TV Dec [place]: 2.62 m/s2 TV Dec Time: 298.61 ms TV | | | E Kwame: 0.78 m/s TV E/A Ratio: 1.52 Qualitative Field Coordinator: | | | Authenticated by: Mehran Alicea MD Report Date/Time: 02-19-2016 | | | 13:27:18 | | + + + + + | Procedure Note | + + | Abelardo, Rad Conversion - 06/26/2019 12:21 PM PDT Patient Name: Jorge SANDOVAL of | | : 1980 Performing Physician: Mehran Alicea | | MD INDICATIONS S | | hortness of breath, Chest pain CONCLUSIONS 1. Overall left ventricular | | systolic function is normal with, an EF between 65 - 70 %.2. Left ventricular wall | | thickness is normal.3. No regional wall motion abnormalities.4. The right ventricle is | | normal in size and function.5. The left atrium is normal in size.6. The aortic valve is | | trileaflet, and appears anatomically normal. No aortic stenosis or regurgitation.7. | | There is trace mitral regurgitation.8. There is no definite evidence of pulmonary | | hypertension.9. There is no pericardial effusion.10. There is no definite coarctation. | | FINDINGS--------ECG rhythm: Sinus rhythm.Study: A 2-dimensional transthoracic | | echocardiogram with m-mode, spectral and color flow Doppler was perfomed.Study: This was | | a technically adequate study.Left Ventricle: Overall left ventricular systolic function | | is normal with, an EF between 65 - 70 %.Left Ventricle: The left ventricle cavity size | | is normal.Left Ventricle: Left ventricular wall thickness is normal.Left Ventricle: No | | regional wall motion abnormalities.Left Ventricle: The diastolic filling pattern is | | normal for the age of the patient.Right Ventricle: The right ventricle is normal in size | | and function.Left Atrium: The left atrium is normal in size.Right Atrium: The right | | atrium is normal in size.Aortic Valve: The aortic valve is trileaflet, and appears | | anatomically normal. No aortic stenosis or regurgitation.Mitral Valve: There is trace | | mitral regurgitation.Mitral Valve: Minimal thickening of the anterior mitral valve | | leaflet.Mitral Valve: There is minimal thickening of the posterior mitral valve | | leaflet.Tricuspid Valve: The tricuspid valve appears structurally normal.Tricuspid | | Valve: [id number] tricuspid regurgitation present.Tricuspid Valve: Right | | ventricular systolic pressure (pulmonary artery systolic pressure) is normal at < 35 | | mmHg.Tricuspid Valve: There is no definite evidence of pulmonary hypertension.Pulmonic | | Valve: Pulmonic valve appears structurally normal.Pulmonic Valve: Mild pulmonic | | regurgitation.Pericardium: There is no pericardial effusion.IVC/Hepatic Veins: The | | inferior vena cava is normal in size and collapses > 50 % with sniff, indicating normal | | central venous pressures.Aorta: There is no definite coarctation.Mass: No mass | | visualizedThrombus: No clot visualizedThrombus: No vegetation visualized. | | MEASUREMENTS LA Major: 3.66 cmEDV(Teich): 83.43 mlIVSd: 0.82 cmLVIDd: | | 4.30 cmLVPWd: 0.81 cmLVOT Diam: 1.96 cm%FS: 33.68 %EF(Teich): 62.78 | | %ESV(Teich): 31.05 mlIVSs: 0.88 cmLVIDs: 2.85 cmLVPWs: 1.24 cmSV(Teich): 52.38 | | mlRA Major: 4.48 cmRVIDd: 2.71 cmLVEF MOD A2C: 63.17 %SV MOD A2C: 44.67 mlLVEF | | MOD A4C: 68.06 %SV MOD A4C: 46.79 mlEF Biplane: 63.36 %LVEDV MOD BP: 71.33 | | mlLVESV MOD BP: 26.13 mlLVEDV MOD A2C: 70.71 mlLVLd A2C: 7.36 cmLVEDV MOD A4C: | | 68.74 mlLVLd A4C: 7.01 cmLVESV MOD A2C: 26.04 mlLVLs A2C: 5.90 cmLVESV MOD A4C: | | 21.95 mlLVLs A4C: 4.93 cmLAESV(A-L): 22.80 mlLAESV Index (A-L): 14.61 ml/m2LAAs | | A2C: 7.87 [id number] A-L A2C: 17.46 mlLALs A2C: 3.01 cmLAAs A4C: 10.27 [id number] | | A-L A4C: 22.05 mlLALs A4C: 4.06 cmAo Diam: 2.52 cmAV Cusp: 2.00 cmLA Diam: | | 3.48 cmLA/Ao: 1.38%FS: 31.63 %EDV(Teich): 97.70 mlEF(Teich): 59.66 %ESV(Teich): | | 39.41 mlIVSd: 0.70 cmIVSs: 0.96 cmLVIDd: 4.60 cmLVIDs: 3.14 cmLVPWd: 0.72 | | cmLVPWs: 1.32 cmSV(Teich): 58.29 mlD-E Excursion: 1.69 cmE-F [place]: 0.10 m/sIVC | | diameter: 1.89 cmIVC collapse: 0.16 cmIVC % collapse: 89.40 %HR: 91.26 BPMAV | | maxP.23 mmHgAV meanP.97 mmHgAV Vmax: 1.34 m/Armen Vmean: 0.91 m/Armen VTI: | | 25.06 cmAVA Vmax: 2.78 cm2AVA (VTI): 2.66 [id number] Dopp: 3.20 l/[id number] Dopp: | | 4.99 l/minHR: 74.74 BPMLVOT maxP.13 mmHgLVOT meanP.18 mmHgLVSI Dopp: | | 42.81 ml/m2LVSV Dopp: 66.79 mlLVOT Vmax: 1.23 m/sLVOT Vmean: 0.83 m/sLVOT VTI: | | 22.08 cmMV A Kwame: 0.57 m/sMV DecT: 147.56 msMV E Kwame: 1.13 m/sMV E/A Ratio: | | 1.97MV PHT: 41.60 msMVA By PHT: 5.28 cm2MV A Dur: 117.64 msSeptal e': 0.15 | | m/sSeptal E/e': 7.24Lateral e': 0.18 m/sLateral E/e': 6.29P Vein A: 0.35 m/sP | | Vein A Dur: 93.42 msP Vein D: 0.50 m/sP Vein S/D Ratio: 1.15P Vein S: 0.58 | | m/sHR: 84.17 BPMPV maxP.63 mmHgPV meanP.91 mmHgPV Vmax: 0.95 m/sPV | | Vmean: 0.64 m/sPV VTI: 21.93 cmRAP: 5 mmHgRVSP: 22.64 mmHgTR maxP.64 | | mmHgTR Vmax: 2.09 m/sTV A Kwame: 0.51 m/sTV Dec [place]: 2.62 m/s2TV Dec Time: | | 298.61 msTV E Kwame: 0.78 m/sTV E/A Ratio: 1.52 Qualitative Field Coordinator: ASAuthenticated by: Mehran | | Deanne GIVENSeport Date/Time: 02-19-2016 13:27:18 IMPRESSION: 1. Overall left ventricular | | systolic function is normal with, an EF between 65 - 70 %.2. Left ventricular wall | | thickness is normal.3. No regional wall motion abnormalities.4. The right ventricle is | | normal in size and function.5. The left atrium is normal in size.6. The aortic valve is | | trileaflet, and appears anatomically normal. No aortic stenosis or regurgitation.7. | | There is trace mitral regurgitation.8. There is no definite evidence of pulmonary | | hypertension.9. There is no pericardial effusion.10. There is no definite coarctation. | |EF(Teich): 62.78 % | |ESV(Teich): 31.05 ml | |IVSs: 0.88 cm | |LVIDs: 2.85 cm | |LVPWs: 1.24 cm | |SV(Teich): 52.38 ml | |RA Major: 4.48 cm | |RVIDd: 2.71 cm | |LVEF MOD A2C: 63.17 % | |SV MOD A2C: 44.67 ml | |LVEF MOD A4C: 68.06 % | |SV MOD A4C: 46.79 ml | |EF Biplane: 63.36 % | |LVEDV MOD BP: 71.33 ml | |LVESV MOD BP: 26.13 ml | |LVEDV MOD A2C: 70.71 ml | |LVLd A2C: 7.36 cm | |LVEDV MOD A4C: 68.74 ml | |LVLd A4C: 7.01 cm | |LVESV MOD A2C: 26.04 ml | |LVLs A2C: 5.90 cm | |LVESV MOD A4C: 21.95 ml | |LVLs A4C: 4.93 cm | |LAESV(A-L): 22.80 ml | |LAESV Index (A-L): 14.61 ml/m2 | |LAAs A2C: 7.87 cm2 | |LAESV A-L A2C: 17.46 ml | |LALs A2C: 3.01 cm | |LAAs A4C: 10.27 cm2 | |LAESV A-L A4C: 22.05 ml | |LALs A4C: 4.06 cm | |Ao Diam: 2.52 cm | |AV Cusp: 2.00 cm | |LA Diam: 3.48 cm | |LA/Ao: 1.38 | |%FS: 31.63 % | |EDV(Teich): 97.70 ml | |EF(Teich): 59.66 % | |ESV(Teich): 39.41 ml | |IVSd: 0.70 cm | |IVSs: 0.96 cm | |LVIDd: 4.60 cm | |LVIDs: 3.14 cm | |LVPWd: 0.72 cm | |LVPWs: 1.32 cm | |SV(Teich): 58.29 ml | |D-E Excursion: 1.69 cm | |E-F [place]: 0.10 m/s | |IVC diameter: 1.89 cm | |IVC collapse: 0.16 cm | |IVC % collapse: 89.40 % | |HR: 91.26 BPM | |AV maxP.23 mmHg | |AV meanP.97 mmHg | |AV Vmax: 1.34 m/s | |AV Vmean: 0.91 m/s | |AV VTI: 25.06 cm | |GALE Vmax: 2.78 cm2 | |GALE (VTI): 2.66 cm2 | |LVCI Dopp: 3.20 l/minm2 | |LVCO Dopp: 4.99 l/min | |HR: 74.74 BPM | |LVOT maxP.13 mmHg | |LVOT meanP.18 mmHg | |LVSI Dopp: 42.81 ml/m2 | |LVSV Dopp: 66.79 ml | |LVOT Vmax: 1.23 m/s | |LVOT Vmean: 0.83 m/s | |LVOT VTI: 22.08 cm | |MV A Kwame: 0.57 m/s | |MV DecT: 147.56 ms | |MV E Kwame: 1.13 m/s | |MV E/A Ratio: 1.97 | |MV PHT: 41.60 ms | |MVA By PHT: 5.28 cm2 | |MV A Dur: 117.64 ms | |Septal e': 0.15 m/s | |Septal E/e': 7.24 | |Lateral e': 0.18 m/s | |Lateral E/e': 6.29 | |P Vein A: 0.35 m/s | |P Vein A Dur: 93.42 ms | |P Vein D: 0.50 m/s | |P Vein S/D Ratio: 1.15 | |P Vein S: 0.58 m/s | |HR: 84.17 BPM | |PV maxP.63 mmHg | |PV meanP.91 mmHg | |PV Vmax: 0.95 m/s | |PV Vmean: 0.64 m/s | |PV VTI: 21.93 cm | |RAP: 5 mmHg | |RVSP: 22.64 mmHg | |TR maxP.64 mmHg | |TR Vmax: 2.09 m/s | |TV A Kwame: 0.51 m/s | |TV Dec [place]: 2.62 m/s2 | |TV Dec Time: 298.61 ms | |TV E Kwame: 0.78 m/s | |TV E/A Ratio: 1.52 | | | |Qualitative Field Coordinator: | |Authenticated by: Mehran Alicea MD | |Report Date/Time: 02-19-2016 13:27:18 | | | |IMPRESSION: | |1. Overall left ventricular systolic function is normal with, an EF between 65 - 70 %. | |2. Left ventricular wall thickness is normal. | |3. No regional wall motion abnormalities. | |4. The right ventricle is normal in size and function. | |5. The left atrium is normal in size. | |6. The aortic valve is trileaflet, and appears anatomically normal. No aortic stenosis or r egurgitation. | |7. There is trace mitral regurgitation. | |8. There is no definite evidence of pulmonary hypertension. | |9. There is no pericardial effusion. | |10. There is no definite coarctation. | + + ECG 12 lead (02/19/2016 10:24 AM PDT) + + + + + + | Component | Value | Ref Range | Performed | Pathologist | | | | | At | Signature | + + + + + + | DIAGNOSIS: | Normal sinus rhythm with | | EXTERNAL | | | | sinus | | LAB | | | | arrhythmiaIntraventricul | | | | | | ar conduction | | | | | | disturbance, nonspecific | | | | | | typeNonspecific ST | | | | | | abnormalityAbnormal | | | | | | ECGPossible incorrect | | | | | | electrode placement less | | | | | | or no longer evident | | | | | | since previous ECG | | | | | | Confirmed by DEANNE | | | | | | MEHRAN ([id number]) on 02/21/2016 | | | | | | 7:36:23 AM | | | | + + + + + + + + | Specimen | + + | | + + + + + | Narrative | Performed At | + + + | Historically converted procedure from [facility] environment | EXTERNAL LAB | + + + + +---------+ + + | Performing | Address | City/State/Zipcode | Phone Number | | Organization | | | | + +---------+ + + | EXTERNAL LAB | | | | + +---------+ + + Troponin I (02/19/2016 10:11 AM PDT) + + + + + + | Component | Value | Ref Range | Performed | Pathologist | | | | | At | Signature | + + + + + + | Troponin I, | <0.020Comment: 0.00 to | 0.00 - 0.10 | EXTERNAL | | | Qual | 0.10 CONSISTENT WITH | ng/mL | LAB | | | | NORMAL POPULATION0.11 | | | | | | to 0.60 CONSISTENT | | | | | | WITH INCREASED RISK FOR | | | | | | ADVERSE OUTCOMES> 0.60 | | | | | | CONSISTENT | | | | | | WITH WHO CRITERIA FOR | | | | | | ACUTE PR Testing | | | | | | performed at [facility];[address] | | | | | | [facility];[place], [place] | | | | | | [address] | | | | + + + + + + + + | Specimen | + + | Blood specimen | | (specimen) | + + + +---------+ + + | Performing | Address | City/State/Zipcode | Phone Number | | Organization | | | | + +---------+ + + | EXTERNAL LAB | | | | + +---------+ + + CK-MB (02/19/2016 3:03 AM PDT) + + + + + -+ | Component | Value | Ref Range | Performed | Pathologist | | | | | At | Signature | + + + + + -+ | CK-MB | 3.4Comment: Testing | 0.5 - 3.6 ng/mL | EXTERNAL | | | | performed at [facility] | | LAB | | | | [address];[place], [place] | | | | | | [address] | | | | + + + + + -+ | CK-MB Index | 0.7Comment: CK INDEX | | EXTERNAL | | | | INTERPRETATION: | | LAB | | | | MMB ng/mL | | | | | | | | | | | |CK INDEX INTERPRETATION: | | | | | | MMB ng/mL | | | | | | | | | | + + + + + -+ + + | Specimen | + + | | + + + +---------+ + + | Performing | Address | City/State/Zipcode | Phone Number | | Organization | | | | + +---------+ + + | EXTERNAL LAB | | | | + +---------+ + + Troponin I (02/19/2016 3:03 AM PDT) + + + + + + | Component | Value | Ref Range | Performed | Pathologist | | | | | At | Signature | + + + + + + | Troponin I, | <0.020Comment: 0.00 to | 0.00 - 0.10 | EXTERNAL | | | Qual | 0.10 CONSISTENT WITH | ng/mL | LAB | | | | NORMAL POPULATION0.11 | | | | | | to 0.60 CONSISTENT | | | | | | WITH INCREASED RISK FOR | | | | | | ADVERSE OUTCOMES> 0.60 | | | | | | CONSISTENT | | | | | | WITH WHO CRITERIA FOR | | | | | | ACUTE PR Testing | | | | | | performed at [facility];[address] | | | | | | [facility];[place], [place] | | | | | | [address] | | | | + + + + + + + + | Specimen | + + | Blood specimen | | (specimen) | + + + +---------+ + + | Performing | Address | City/State/Zipcode | Phone Number | | Organization | | | | + +---------+ + + | EXTERNAL LAB | | | | + +---------+ + + Protime INR (02/19/2016 3:03 AM PDT) + + + + + + | Component | Value | Ref Range | Performed | Pathologist | | | | | At | Signature | + + + + + + | INR | 1.1Comment: REFERENCE | | EXTERNAL | | | | RANGE:0.9 - 1.2 | | LAB | | | | NON-ANTICOAGULATED2.0 | | | | | | - 3.0 ALL OTHER | | | | | | THERAPEUTIC | | | | | | INDICATIONS2.5 - 3.5 | | | | | | MECHANICAL HEART VALVES, | | | | | | RECURRENT OR SYSTEMIC | | | | | | EMBOLISMTesting | | | | | | performed at [facility];[address] | | | | | | [facility];[place], [place] | | | | | | [address] | | | | + + + + + + + + | Specimen | + + | Blood specimen | | (specimen) | + + + +---------+ + + | Performing | Address | City/State/Zipcode | Phone Number | | Organization | | | | + +---------+ + + | EXTERNAL LAB | | | | + +---------+ + + External Lab: CBC (02/19/2016 3:03 AM PDT) + + + + + + | Component | Value | Ref Range | Performed | Pathologist | | | | | At | Signature | + + + + + + | WBC | 6.58Comment: Testing | 3.80 - 11.00 | EXTERNAL | | | | performed at [facility], [address] | K/uL | LAB | | | | [address], | | | | | | [place] [address] | | | | + + + + + + | Non- | 3.50 (L)Comment: Testing | 3.70 - 5.10 | EXTERNAL | | | Red Blood | performed at [facility], [address] | M/uL | LAB | | | Cells | [address], | | | | | Counted | [place] [address] | | | | + + + + + + | Hemoglobin | 10.5 (L)Comment: Testing | 11.3 - 15.5 | EXTERNAL | | | | performed at [facility], [address] | g/dL | LAB | | | | [address], | | | | | | [place] [address] | | | | + + + + + + | Hematocrit, | 32.5 (L)Comment: Testing | 34.0 - 46.0 % | EXTERNAL | | | POC | performed at [facility], [address] | | LAB | | | | [address], | | | | | | [place] [address] | | | | + + + + + + | MCV | 92.8Comment: Testing | 80.0 - 100.0 fl | EXTERNAL | | | | performed at [facility], [address] | | LAB | | | | [address], | | | | | | [place] [address] | | | | + + + + + + | MCH | 29.9Comment: Testing | 27.0 - 34.0 pg | EXTERNAL | | | | performed at [facility], [address] | | LAB | | | | [address], | | | | | | [place] [address] | | | | + + + + + + | MCHC | 32.2Comment: Testing | 32.0 - 35.5 | EXTERNAL | | | | performed at [facility], [address] | g/dL | LAB | | | | [address], | | | | | | [place] [address] | | | | + + + + + + | RDW-CV | 41.6Comment: Testing | 37 - 53 fl | EXTERNAL | | | | performed at [facility], [address] | | LAB | | | | [address], | | | | | | [place] [address] | | | | + + + + + + | Platelet | 153Comment: Testing | 150 - 400 K/uL | EXTERNAL | | | Count | performed at [facility], [address] | | LAB | | | Plasma | [address], | | | | | | [place] [address] | | | | + + + + + + | MPV | 9.0Comment: Testing | fl | EXTERNAL | | | | performed at [facility], [address] | | LAB | | | | [address], | | | | | | [place] [address] | | | | + + + + + + | Differentia | AUTOMATEDComment: | | EXTERNAL | | | l Type | Testing performed at | | LAB | | | | [facility], [address] | | | | | | [place] | | | | | | [address] | | | | + + + + + + | % Segmented | 70.07Comment: Testing | % | EXTERNAL | | | | performed at [facility], [address] | | LAB | | | Neutrophils | [address], | | | | | | [place] [address] | | | | + + + + + + | % | 17.92Comment: Testing | % | EXTERNAL | | | Lymphocytes | performed at [facility], [address] | | LAB | | | | [address], | | | | | | [place] [address] | | | | + + + + + + | % Monocytes | 11.43Comment: Testing | % | EXTERNAL | | | | performed at [facility], [address] | | LAB | | | | [address], | | | | | | [place] [address] | | | | + + + + + + | % | 0.06Comment: Testing | % | EXTERNAL | | | Eosinophils | performed at [facility], [address] | | LAB | | | | [address], | | | | | | [place] [address] | | | | + + + + + + | % Basophils | 0.52Comment: Testing | % | EXTERNAL | | | | performed at [facility], [address] | | LAB | | | | [address], | | | | | | [place] [address] | | | | + + + + + + | Absolute | 4.61Comment: Testing | 1.90 - 7.40 | EXTERNAL | | | Segmented | performed at [facility], [address] | K/uL | LAB | | | Neutrophils | [address], | | | | | | [place] [address] | | | | + + + + + + | Absolute | 1.18Comment: Testing | 1.00 - 3.90 | EXTERNAL | | | Lymphocytes | performed at [facility], [address] | K/uL | LAB | | | | [address], | | | | | | [place] [address] | | | | + + + + + + | Absolute | 0.75Comment: Testing | 0.00 - 0.80 | EXTERNAL | | | Monocytes | performed at [facility], [address] | K/uL | LAB | | | | [address], | | | | | | [place] [address] | | | | + + + + + + | Absolute | 0.00Comment: Testing | 0.00 - 0.50 | EXTERNAL | | | Eosinophils | performed at [facility], [address] | K/uL | LAB | | | | [address], | | | | | | [place] [address] | | | | + + + + + + | Absolute | 0.03Comment: Testing | 0.00 - 0.10 | EXTERNAL | | | Basophils | performed at [facility], [address] | K/uL | LAB | | | | [address], | | | | | | [place] [address] | | | | + + + + + + + + | Specimen | + + | Blood specimen | | (specimen) | + + + +---------+ + + | Performing | Address | City/State/Zipcode | Phone Number | | Organization | | | | + +---------+ + + | EXTERNAL LAB | | | | + +---------+ + + Phosphorus (02/19/2016 3:03 AM PDT) + + + + + + | Component | Value | Ref Range | Performed | Pathologist | | | | | At | Signature | + + + + + + | PHOSPHORUS | 3.7Comment: Testing | 2.3 - 4.8 mg/dL | EXTERNAL | | | | performed at [facility], [address] | | LAB | | | | [address], | | | | | | [place] [address] | | | | + + + + + + + + | Specimen | + + | Blood specimen | | (specimen) | + + + +---------+ + + | Performing | Address | City/State/Zipcode | Phone Number | | Organization | | | | + +---------+ + + | EXTERNAL LAB | | | | + +---------+ + + Magnesium (02/19/2016 3:03 AM PDT) + + + + + + | Component | Value | Ref Range | Performed | Pathologist | | | | | At | Signature | + + + + + + | Magnesium | 2.0Comment: Testing | 1.7 - 2.4 mg/dL | EXTERNAL | | | | performed at [facility], [address] | | LAB | | | | [address], | | | | | | [place] [address] | | | | + + + + + + + + | Specimen | + + | Blood specimen | | (specimen) | + + + +---------+ + + | Performing | Address | City/State/Zipcode | Phone Number | | Organization | | | | + +---------+ + + | EXTERNAL LAB | | | | + +---------+ + + Lactic Acid (02/19/2016 3:03 AM PDT) + + + + + + | Component | Value | Ref Range | Performed | Pathologist | | | | | At | Signature | + + + + + + | Lactate | 0.7Comment: Testing | 0.4 - 2.0 | EXTERNAL | | | | performed at [facility];[address] | mmol/L | LAB | | | | [address];[place], [place] | | | | | | [address] | | | | + + + + + + + + | Specimen | + + | Blood specimen | | (specimen) | + + + +---------+ + + | Performing | Address | City/State/Zipcode | Phone Number | | Organization | | | | + +---------+ + + | EXTERNAL LAB | | | | + +---------+ + + CK Total (02/19/2016 3:03 AM PDT) + + + + + + | Component | Value | Ref Range | Performed | Pathologist | | | | | At | Signature | + + + + + + | CK, Total | 456 (H)Comment: Testing | 30 - 240 U/L | EXTERNAL | | | | performed at [facility];[address] | | LAB | | | | [address];[place] | | | | | | [address] | | | | + + + + + + + + | Specimen | + + | Blood specimen | | (specimen) | + + + +---------+ + + | Performing | Address | City/State/Zipcode | Phone Number | | Organization | | | | + +---------+ + + | EXTERNAL LAB | | | | + +---------+ + + Basic Metabolic Panel (02/19/2016 3:03 AM PDT) + + + + + + | Component | Value | Ref Range | Performed | Pathologist | | | | | At | Signature | + + + + + + | Na | 137Comment: Testing | 135 - 143 | EXTERNAL | | | | performed at [facility], [address] | mmol/L | LAB | | | | [address], | | | | | | [place] [address] | | | | + + + + + + | K | 3.8Comment: Testing | 3.5 - 4.9 | EXTERNAL | | | | performed at [facility], [address] | mmol/L | LAB | | | | [address], | | | | | | [place] [address] | | | | + + + + + + | Cl | 112 (H)Comment: Testing | 99 - 109 mmol/L | EXTERNAL | | | | performed at [facility], [address] | | LAB | | | | [address], | | | | | | [place] [address] | | | | + + + + + + | CO2 | 18 (L)Comment: Testing | 23 - 32 mmol/L | EXTERNAL | | | | performed at [facility], [address] | | LAB | | | | [address], | | | | | | [place] [address] | | | | + + + + + + | Anion Gap | 11Comment: Testing | 5 - 20 mmol/L | EXTERNAL | | | | performed at [facility], [address] | | LAB | | | | [address], | | | | | | [place] [address] | | | | + + + + + + | Glucose, | 119 (H)Comment: Testing | 65 - 99 mg/dL | EXTERNAL | | | Fasting | performed at [facility], [address] | | LAB | | | | [address], | | | | | | [place] [address] | | | | + + + + + + | BUN | 10Comment: Testing | 8 - 25 mg/dL | EXTERNAL | | | | performed at [facility], [address] | | LAB | | | | [address], | | | | | | [place] [address] | | | | + + + + + + | Creatinine | 0.33 (L)Comment: Testing | 0.50 - 1.00 | EXTERNAL | | | | performed at [facility], [address] | mg/dL | LAB | | | | [address], | | | | | | [place] [address] | | | | + + + + + + | BUN/Creatin | 30Comment: Testing | | EXTERNAL | | | ine Ratio | performed at [facility], [address] | | LAB | | | | [address], | | | | | | [place] [address] | | | | + + + + + + | Calcium | 8.2 (L)Comment: Testing | 8.5 - 10.5 | EXTERNAL | | | | performed at [facility], [address] | mg/dL | LAB | | | | [address], | | | | | | [place] [address] | | | | + + + + + + | Estimated | >60Comment: GFR <60: | mL/min/1.73m2 | EXTERNAL | | | GFR | CHRONIC KIDNEY DISEASE, | | LAB | | | | IF FOUND OVER A 3 MONTH | | | | | | PERIOD.GFR <15: KIDNEY | | | | | | FAILURE.FOR | | | | | | AMERICANS, MULTIPLY THE | | | | | | CALCULATED GFR BY | | | | | | 1.210.Testing performed | | | | | | at [facility], [address] | | | | | | [address], | | | | | | [place] [address] | | | | + + + + + + + + | Specimen | + + | Blood specimen | | (specimen) | + + + +---------+ + + | Performing | Address | City/State/Zipcode | Phone Number | | Organization | | | | + +---------+ + + | EXTERNAL LAB | | | | + +---------+ + + XR Chest 1 Vw (02/18/2016 12:35 PM PDT) + + | Specimen | + + | | + + + + + | Impressions | Performed At | + + + | 1. Endotracheal tube terminates in close proximity with the | | | анна. Recommend withdrawal by 2 to 3 cm. 2. Critical result: The | | | imaging findings are discussed with the ordering clinician by | | | telephone at 12:58 PM. | | + + + + + + | Narrative | Performed At | + + + | LALO Petersen TRAUMA 11/11/1860 89 years XR CHEST 1 VIEW 02/18/2016 | | | 12:35 PM INDICATION: Repositioning of endotracheal tube | | | COMPARISON: 02/18/2016 TECHNIQUE: Chest 1 view, AP view of the chest | | | FINDINGS: The endotracheal tube is retracted but still | | | terminates very close to the анна. Recommend withdrawal by 2 to 3 | | | cm. The NG tube is stable. There is no pneumothorax. The lungs are | | | clear. Improving aeration of the medial left lower lobe is | | | demonstrated. | | + + + + + | Procedure Note | + + | Abelardo, Rad Conversion - 06/26/2019 12:21 PM RAMSES MAY 60 [id number] yearsXR | | CHEST 1 VIEW02/18/2016 12:35 PM INDICATION: Repositioning of endotracheal tube COMPARISON: | | 02/18/2016 TECHNIQUE: Chest 1 view, AP view of the chest FINDINGS: The endotracheal tube | | is retracted but still terminates very close to the анна. Recommend withdrawal by 2 | | to 3 cm. The NG tube is stable. There is no pneumothorax. The lungs are clear. Improving | | aeration of the medial left lower lobe is demonstrated. IMPRESSION: 1. Endotracheal | | tube terminates in close proximity with the анна. Recommend withdrawal by 2 to 3 cm.2. | | Critical result: The imaging findings are discussed with the ordering clinician by | | telephone at 12:58 PM. | | PM | |TECHNIQUE: Chest 1 view, AP view of the chest | | | |FINDINGS: The endotracheal tube is retracted but still terminates very close to the анна . Recommend withdrawal by 2 to 3 cm. The NG tube is stable. There is no pneumothorax. The caridad ngs are clear. Improving aeration of the medial left lower lobe is | |demonstrated. | | | |IMPRESSION: | |1. Endotracheal tube terminates in close proximity with the анна. Recommend withdrawal b y 2 to 3 cm. | |2. Critical result: The imaging findings are discussed with the ordering clinician by tele phone at 12:58 PM. | | | | | + + Culture, Blood, 2nd Specimen (02/18/2016 12:29 PM PDT) + + | Specimen | + + | Blood specimen | | (specimen) | + + + + + | Narrative | Performed At | + + + | Specimen Description BLOOD SPECIAL | EXTERNAL LAB | | REQUESTS RAC | | | Testing performed at [facility] [place] [facility];[address];[place] [address] CULTURE | | | NO GROWTH 6 DAYS | | | Testing performed at [facility], [address] [facility], [place], [place] | | | [address] | | + + + + +---------+ + + | Performing | Address | City/State/Zipcode | Phone Number | | Organization | | | | + +---------+ + + | EXTERNAL LAB | | | | + +---------+ + + Culture, Blood (02/18/2016 12:03 PM PDT) + + | Specimen | + + | Blood specimen | | (specimen) | + + + + + | Narrative | Performed At | + + + | Specimen Description BLOOD SPECIAL | EXTERNAL LAB | | REQUESTS RAC | | | Testing performed at [facility];[address];[place] [address] CULTURE | | | NO GROWTH 6 DAYS | | | Testing performed at [facility], [address], [place], [place] | | | [address] | | + + + + +---------+ + + | Performing | Address | City/State/Zipcode | Phone Number | | Organization | | | | + +---------+ + + | EXTERNAL LAB | | | | + +---------+ + + CT Head wo Contrast (02/18/2016 11:11 AM PDT) + + | Specimen | + + | | + + + + + | Impressions | Performed At | + + + | 1. Normal CT of the brain without contrast. Electronically | | | signed by Steve Macias MD on 02/18/2016 11:16 AM | | + + + + + + | Narrative | Performed At | + + + | HISTORY: Head injury. COMPARISON: None. TECHNIQUE: 5-mm | | | axial noncontrast CT images of the brain using automated exposure | | | control were acquired from the foramen magnum through the cranial | | | vertex. FINDINGS: The cortical sulci, basal cisterns, and | | | ventricles appear within normal limits. There is no intracranial | | | hemorrhage or evidence of mass effect or midline shift. The osseous | | | structures appear unremarkable. No evidence of sinusitis is seen. | | | Mastoid air cells are clear. | | + + + + + | Procedure Note | + + | Abelardo, Rad Conversion - 06/26/2019 12:21 PM PDT HISTORY:Head injury. COMPARISON:None. | | TECHNIQUE:5-mm axial noncontrast CT images of the brain using automated exposure control | | were acquired from the foramen magnum through the cranial vertex. FINDINGS:The cortical | | sulci, basal cisterns, and ventricles appear within normal limits. There is no | | intracranial hemorrhage or evidence of mass effect or midline shift. The osseous | | structures appear unremarkable. No evidence of sinusitis is seen. Mastoid air cells | | are clear. IMPRESSION: 1. Normal CT of the brain without contrast. Electronically | | signed by Steve Macias MD on 02/18/2016 11:16 AM | | | |FINDINGS: | |The cortical sulci, basal cisterns, and ventricles appear within normal limits. There is n o intracranial hemorrhage or evidence of mass effect or midline shift. The osseous structur es appear unremarkable. No evidence | |of sinusitis is seen. Mastoid air | | cells are clear. | | | |IMPRESSION: | |1. Normal CT of the brain without contrast. | | | | | + + ECG 12 lead (02/18/2016 10:57 AM PDT) + + + + + + | Component | Value | Ref Range | Performed | Pathologist | | | | | At | Signature | + + + + + + | DIAGNOSIS: | Suspect arm lead | | EXTERNAL | | | | reversal, interpretation | | LAB | | | | assumes no | | | | | | reversalSinus | | | | | | tachycardiaLateral | | | | | | infarct , age | | | | | | undeterminedAbnormal | | | | | | ECGNo previous ECGs | | | | | | availableThis ECG | | | | | | contains Unconfirmed | | | | | | Interpretation | | | | | | Statements. See ED | | | | | | Record for Physician | | | | | | Interpretation. | | | | | | Confirmed by MUSE READ | | | | | | ONLY, -COMPUTER ([id number]), | | | | | | editor farm journal Galilea Britton | | | | | | (122) on 02/18/2016 | | | | | | 2:55:22 PM | | | | + + + + + + + + | Specimen | + + | | + + + + + | Narrative | Performed At | + + + | Historically converted procedure from [facility] environment | EXTERNAL LAB | + + + + +---------+ + + | Performing | Address | City/State/Zipcode | Phone Number | | Organization | | | | + +---------+ + + | EXTERNAL LAB | | | | + +---------+ + + XR Chest 1 Tanner (02/18/2016 10:37 AM PDT) + + | Specimen | + + | | + + + + + | Impressions | Performed At | + + + | 1. Right mainstem endotracheal intubation. Retract the ET tube 6 | | | cm for optimal positioning. This was discussed with Dr. Gann at | | | 10:40 AM date of study. | | + + + + + + | Narrative | Performed At | + + + | HISTORY: Respiratory failure. COMPARISON: None. TECHNIQUE: | | | AP portable film of the chest at 1032 hours FINDINGS: Right | | | mainstem endotracheal intubation. The tip should be retracted 6 cm for | | | optimal positioning. Hyperinflation of the right lung, decreased | | | aeration and minimal airspace density at the left lung probably due to | | | atelectasis. Heart size is normal. NG tube extends into the stomach | | | and the tip is not seen. | | + + + + + | Procedure Note | + + | Abelardo, Rad Conversion - 06/26/2019 12:21 PM PDT HISTORY:Respiratory failure. | | COMPARISON:None. TECHNIQUE:AP portable film of the chest at 1032 hours FINDINGS:Right | | mainstem endotracheal intubation. The tip should be retracted 6 cm for optimal | | positioning. Hyperinflation of the right lung, decreased aeration and minimal airspace | | density at the left lung probably due to atelectasis. Heart size is normal. NG tube | | extends into the stomach and the tip is not seen. IMPRESSION: 1. Right mainstem | | endotracheal intubation. Retract the ET tube 6 cm for optimal positioning. This was | | discussed with Dr. Gann at 10:40 AM date of study. | |FINDINGS: | |Right mainstem endotracheal intubation. The tip should be retracted 6 cm for optimal positi oning. Hyperinflation of the right lung, decreased aeration and minimal airspace density at the left lung probably due to atelectasis. Heart size is normal. NG | |tube extends into the stomach and the tip is not seen. | | | |IMPRESSION: | |1. Right mainstem endotracheal intubation. Retract the ET tube 6 cm for optimal positionin g. This was discussed with Dr. Gann at 10:40 AM date of study. | | | | | + + Lactic Acid (02/18/2016 10:25 AM PDT) + + + + + + | Component | Value | Ref Range | Performed | Pathologist | | | | | At | Signature | + + + + + + | Lactate | 2.6 (H)Comment: Testing | 0.4 - 2.0 | EXTERNAL | | | | performed at [facility];888 | mmol/L | LAB | | | | [address];[place], [place] | | | | | | [address] | | | | + + + + + + + + | Specimen | + + | | + + + +---------+ + + | Performing | Address | City/State/Zipcode | Phone Number | | Organization | | | | + +---------+ + + | EXTERNAL LAB | | | | + +---------+ + + HISTORICAL LAB PANEL RESULT (02/18/2016 10:25 AM PDT) + + + + + -+ | Component | Value | Ref Range | Performed | Pathologist | | | | | At | Signature | + + + + + -+ | WBC | 5.00Comment: Testing | 3.80 - 11.00 | EXTERNAL | | | | performed at [facility];888 | K/uL | LAB | | | | [address];[place] | | | | | | [address] | | | | + + + + + -+ | Non- | 3.85Comment: QA FLAGS | 3.70 - 5.10 | EXTERNAL | | | Red Blood | AND/OR RANGES MODIFIED | M/uL | LAB | | | Cells | BY DEMOGRAPHIC UPDATE ON | | | | | Counted | 02/17 AT 1748Testing | | | | | | performed at [facility];[address] | | | | | | [address];[place] | | | | | | [address] | | | | + + + + + -+ | Hemoglobin | 11.9Comment: QA FLAGS | 11.3 - 15.5 | EXTERNAL | | | | AND/OR RANGES MODIFIED | g/dL | LAB | | | | BY DEMOGRAPHIC UPDATE ON | | | | | | 04 AT 1748Testing | | | | | | performed at [facility];[address] | | | | | | [address];[place] | | | | | | [address] | | | | + + + + + -+ | Hematocrit, | 34.7Comment: QA FLAGS | 34.0 - 46.0 % | EXTERNAL | | | POC | AND/OR RANGES MODIFIED | | LAB | | | | BY DEMOGRAPHIC UPDATE ON | | | | | | 02/17 AT 1748Testing | | | | | | performed at [facility];[address] | | | | | | [address];[place] | | | | | | [address] | | | | + + + + + -+ | MCV | 90.2Comment: Testing | 80.0 - 100.0 fl | EXTERNAL | | | | performed at [facility];[address] | | LAB | | | | [address];[place] | | | | | | [address] | | | | + + + + + -+ | MCH | 31.0Comment: Testing | 27.0 - 34.0 pg | EXTERNAL | | | | performed at [facility];[address] | | LAB | | | | [address];[place] | | | | | | [address] | | | | + + + + + -+ | MCHC | 34.4Comment: Testing | 32.0 - 35.5 | EXTERNAL | | | | performed at [facility];888 | g/dL | LAB | | | | [address];[place] | | | | | | [address] | | | | + + + + + -+ | RDW-CV | 40.3Comment: Testing | 37 - 53 fl | EXTERNAL | | | | performed at [facility];[address] | | LAB | | | | [address];[place] | | | | | | [address] | | | | + + + + + -+ | Platelet | 164Comment: Testing | 150 - 400 K/uL | EXTERNAL | | | Count | performed at [facility];[address] | | LAB | | | Plasma | [address];[place] | | | | | | [address] | | | | + + + + + -+ | MPV | 8.2Comment: Testing | fl | EXTERNAL | | | | performed at [facility];[address] | | LAB | | | | [address];[place] | | | | | | [address] | | | | + + + + + -+ | Differentia | AUTOMATEDComment: | | EXTERNAL | | | l Type | Testing performed at | | LAB | | | | [facility];[address];[place] [address] | | | | + + + + + -+ | % Segmented | 55.86Comment: Testing | % | EXTERNAL | | | | performed at [facility];[address] | | LAB | | | Neutrophils | [address];[place] | | | | | | [address] | | | | + + + + + -+ | % | 36.56Comment: Testing | % | EXTERNAL | | | Lymphocytes | performed at [facility];[address] | | LAB | | | | [address];[place] | | | | | | [address] | | | | + + + + + -+ | % Monocytes | 6.02Comment: Testing | % | EXTERNAL | | | | performed at [facility];[address] | | LAB | | | | [address];[place] | | | | | | [address] | | | | + + + + + -+ | % | 0.97Comment: Testing | % | EXTERNAL | | | Eosinophils | performed at [facility];[address] | | LAB | | | | [address];[place] | | | | | | [address] | | | | + + + + + -+ | % Basophils | 0.59Comment: Testing | % | EXTERNAL | | | | performed at [facility];[address] | | LAB | | | | [address];[place] | | | | | | [address] | | | | + + + + + -+ | Absolute | 2.79Comment: QA FLAGS | 1.90 - 7.40 | EXTERNAL | | | Segmented | AND/OR RANGES MODIFIED | K/uL | LAB | | | Neutrophils | BY DEMOGRAPHIC UPDATE ON | | | | | | 02/17 AT 1748Testing | | | | | | performed at [facility];[address] | | | | | | [address];[place] | | | | | | [address] | | | | + + + + + -+ | Absolute | 1.83Comment: Testing | 1.00 - 3.90 | EXTERNAL | | | Lymphocytes | performed at [facility];[address] | K/uL | LAB | | | | [address];[place] | | | | | | [address] | | | | + + + + + -+ | Absolute | 0.30Comment: Testing | 0.00 - 0.80 | EXTERNAL | | | Monocytes | performed at [facility];[address] | K/uL | LAB | | | | [address];[place] | | | | | | [address] | | | | + + + + + -+ | Absolute | 0.05Comment: Testing | 0.00 - 0.50 | EXTERNAL | | | Eosinophils | performed at [facility];[address] | K/uL | LAB | | | | [address];[place] | | | | | | [address] | | | | + + + + + -+ | Absolute | 0.03Comment: Testing | 0.00 - 0.10 | EXTERNAL | | | Basophils | performed at [facility];[address] | K/uL | LAB | | | | [address];[place] | | | | | | [address] | | | | + + + + + -+ | Na | 140Comment: Testing | 135 - 143 | EXTERNAL | | | | performed at [facility];[address] | mmol/L | LAB | | | | [address];[place] | | | | | | [address] | | | | + + + + + -+ | K | 3.0 (L)Comment: Testing | 3.5 - 4.9 | EXTERNAL | | | | performed at [facility];888 | mmol/L | LAB | | | | [address];[place] | | | | | | [address] | | | | + + + + + -+ | Cl | 110 (H)Comment: Testing | 99 - 109 mmol/L | EXTERNAL | | | | performed at [facility];[address] | | LAB | | | | [address];[place] | | | | | | [address] | | | | + + + + + -+ | CO2 | 19 (L)Comment: Testing | 23 - 32 mmol/L | EXTERNAL | | | | performed at [facility];[address] | | LAB | | | | [address];[place] | | | | | | [address] | | | | + + + + + -+ | Anion Gap | 14Comment: Testing | 5 - 20 mmol/L | EXTERNAL | | | | performed at [facility];[address] | | LAB | | | | [address];[place] | | | | | | [address] | | | | + + + + + -+ | Glucose, | 111 (H)Comment: Testing | 65 - 99 mg/dL | EXTERNAL | | | Fasting | performed at [facility];[address] | | LAB | | | | [address];[place] | | | | | | [address] | | | | + + + + + -+ | BUN | 11Comment: Testing | 8 - 25 mg/dL | EXTERNAL | | | | performed at [facility];[address] | | LAB | | | | [address];[place] | | | | | | [address] | | | | + + + + + -+ | Creatinine | 0.59Comment: QA FLAGS | 0.50 - 1.00 | EXTERNAL | | | | AND/OR RANGES MODIFIED | mg/dL | LAB | | | | BY DEMOGRAPHIC UPDATE ON | | | | | | 02/17 AT 1748Testing | | | | | | performed at [facility];[address] | | | | | | [address];[place] | | | | | | [address] | | | | + + + + + -+ | BUN/Creatin | 19Comment: Testing | | EXTERNAL | | | ine Ratio | performed at [facility];[address] | | LAB | | | | [address];[place] | | | | | | [address] | | | | + + + + + -+ | Calcium | 7.4 (L)Comment: Testing | 8.5 - 10.5 | EXTERNAL | | | | performed at [facility];888 | mg/dL | LAB | | | | [address];[place] | | | | | | [address] | | | | + + + + + -+ | Protein, | 6.8Comment: Testing | 6.3 - 8.2 g/dL | EXTERNAL | | | Total | performed at [facility];[address] | | LAB | | | | [address];[place] | | | | | | [address] | | | | + + + + + -+ | Albumin | 3.4 (L)Comment: QA FLAGS | 3.6 - 5.0 g/dL | EXTERNAL | | | | AND/OR RANGES MODIFIED | | LAB | | | | BY DEMOGRAPHIC UPDATE ON | | | | | | 02/17 AT 1748Testing | | | | | | performed at [facility];[address] | | | | | | [address];[place] | | | | | | [address] | | | | + + + + + -+ | Globulin | 3.4Comment: QA FLAGS | 1.3 - 4.9 g/dL | EXTERNAL | | | | AND/OR RANGES MODIFIED | | LAB | | | | BY DEMOGRAPHIC UPDATE ON | | | | | | 0408 AT 1748Testing | | | | | | performed at [facility];[address] | | | | | | [address];[place] | | | | | | [address] | | | | + + + + + -+ | A/G Ratio | 1.0Comment: QA FLAGS | 1.0 - 2.4 | EXTERNAL | | | | AND/OR RANGES MODIFIED | | LAB | | | | BY DEMOGRAPHIC UPDATE ON | | | | | | 0408 AT 1748Testing | | | | | | performed at [facility];[address] | | | | | | [address];[place] | | | | | | [address] | | | | + + + + + -+ | Bilirubin | 0.6Comment: Testing | 0.1 - 1.5 mg/dL | EXTERNAL | | | Total | performed at [facility];[address] | | LAB | | | | [address];[place] | | | | | | [address] | | | | + + + + + -+ | ALP, | 41Comment: Testing | 35 - 115 U/L | EXTERNAL | | | External | performed at [facility];[address] | | LAB | | | | [address];[place] | | | | | | [address] | | | | + + + + + -+ | AST | 13Comment: Testing | 10 - 45 U/L | EXTERNAL | | | | performed at [facility];[address] | | LAB | | | | [address];[place] | | | | | | [address] | | | | + + + + + -+ | ALT | 17Comment: Testing | 10 - 65 U/L | EXTERNAL | | | | performed at [facility];[address] | | LAB | | | | [address];[place] | | | | | | [address] | | | | + + + + + -+ | Estimated | NOT ABLE TO | mL/min/1.73m2 | EXTERNAL | | | GFR | CALCULATEComment: QA | | LAB | | | | FLAGS AND/OR RANGES | | | | | | MODIFIED BY DEMOGRAPHIC | | | | | | UPDATE ON 02/17 AT | | | | | | 1748Testing performed at | | | | | | [facility];[address] | | | | | | [address];[place] [address] | | | | + + + + + -+ | CK, Total | 128Comment: QA FLAGS | 30 - 240 U/L | EXTERNAL | | | | AND/OR RANGES MODIFIED | | LAB | | | | BY DEMOGRAPHIC UPDATE ON | | | | | | 02/17 AT 1748Testing | | | | | | performed at [facility];[address] | | | | | | [facility] [address];[place] | | | | | | [address] | | | | + + + + + -+ | INR | 1.0Comment: REFERENCE | | EXTERNAL | | | | RANGE:0.9 - 1.2 | | LAB | | | | NON-ANTICOAGULATED2.0 | | | | | | - 3.0 ALL OTHER | | | | | | THERAPEUTIC | | | | | | INDICATIONS2.5 - 3.5 | | | | | | MECHANICAL HEART VALVES, | | | | | | RECURRENT OR SYSTEMIC | | | | | | EMBOLISMTesting | | | | | | performed at [facility];[address] | | | | | | [address];[place] | | | | | | [address] | | | | + + + + + -+ | aPTT, | 24Comment: Testing | 23 - 32 seconds | EXTERNAL | | | Patient | performed at [facility];[address] | | LAB | | | | [address];[place] | | | | | | [address] | | | | + + + + + -+ | CK-MB | 1.4Comment: QA FLAGS | 0.5 - 3.6 ng/mL | EXTERNAL | | | | AND/OR RANGES MODIFIED | | LAB | | | | BY DEMOGRAPHIC UPDATE ON | | | | | | 02/17 AT 1748Testing | | | | | | performed at [facility];[address] | | | | | | [address];[place] | | | | | | [address] | | | | + + + + + -+ | CK-MB Index | 1.1Comment: CK INDEX | | EXTERNAL | | | | INTERPRETATION: | | LAB | | | | MMB ng/mL | | | | | | | | | | | |CK INDEX INTERPRETATION: | | | | | | MMB ng/mL | | | | | | | | | | + + + + + -+ + + | Specimen | + + | | + + + +---------+ + + | Performing | Address | City/State/Zipcode | Phone Number | | Organization | | | | + +---------+ + + | EXTERNAL LAB | | | | + +---------+ + + C-Reactive Protein (02/18/2016 10:25 AM PDT) + + + + + + | Component | Value | Ref Range | Performed | Pathologist | | | | | At | Signature | + + + + + + | CRP | <0.3Comment: Testing | mg/dL | EXTERNAL | | | | performed at [facility];[address] | | LAB | | | | [address];[place] | | | | | | [address] | | | | + + + + + + + + | Specimen | + + | Blood specimen | | (specimen) | + + + +---------+ + + | Performing | Address | City/State/Zipcode | Phone Number | | Organization | | | | + +---------+ + + | EXTERNAL LAB | | | | + +---------+ + + Ammonia (02/18/2016 10:25 AM PDT) + + + + + + | Component | Value | Ref Range | Performed | Pathologist | | | | | At | Signature | + + + + + + | Ammonia | 12Comment: Testing | umol/L | EXTERNAL | | | | performed at [facility];[address] | | LAB | | | | [address];[place], [place] | | | | | | [address] | | | | + + + + + + + + | Specimen | + + | Blood specimen | | (specimen) | + + + +---------+ + + | Performing | Address | City/State/Zipcode | Phone Number | | Organization | | | | + +---------+ + + | EXTERNAL LAB | | | | + +---------+ + + Drugs Of ABuse Screen, Urine (H) (02/18/2016 10:21 AM PDT) + + + + + + | Component | Value | Ref Range | Performed | Pathologist | | | | | At | Signature | + + + + + + | Methampheta | NEGATIVEComment: | | EXTERNAL | | | mine/ | Positive cutoff for | | LAB | | | Amphetamine | AMP = 1000 ng/mLTesting | | | | | Screen, | performed at [facility];[address] | | | | | UA, POC | [address];[place], [place] | | | | | | [address] | | | | + + + + + + | Barbiturate | NEGATIVEComment: | | EXTERNAL | | | s Screen, | Positive cutoff for | | LAB | | | Urine | GIOVANI = 200 ng/mLQA FLAGS | | | | | | AND/OR RANGES MODIFIED | | | | | | BY DEMOGRAPHIC UPDATE ON | | | | | | 02/17 AT 1748Testing | | | | | | performed at [facility] | | | | | | [address];[place] | | | | | | [address] | | | | + + + + + + | Benzodiazep | POSITIVE (A)Comment: | | EXTERNAL | | | janina | Positive cutoff for | | LAB | | | Screen, | BENZO = 200 ng/mLQA | | | | | Urine | FLAGS AND/OR RANGES | | | | | | MODIFIED BY DEMOGRAPHIC | | | | | | UPDATE ON 02/17 AT | | | | | | 1748Testing performed at | | | | | | [facility];[address] [facility] | | | | | | [address];[place] [address] | | | | + + + + + + | Cocaine | NEGATIVEComment: | | EXTERNAL | | | | Positive cutoff for | | LAB | | | | LEONA = 300 ng/mLQA FLAGS | | | | | | AND/OR RANGES MODIFIED | | | | | | BY DEMOGRAPHIC UPDATE ON | | | | | | 02/17 AT 1748Testing | | | | | | performed at [facility];[address] | | | | | | [address];[place] | | | | | | [address] | | | | + + + + + + | Methadone | NEGATIVEComment: | | EXTERNAL | | | | Positive cutoff for | | LAB | | | | MTD = 300 ng/mLTesting | | | | | | performed at [facility];[address] | | | | | | [address];[place] | | | | | | [address] | | | | + + + + + + | Opiates | NEGATIVEComment: | | EXTERNAL | | | | Positive cutoff for | | LAB | | | | OPI = 300 ng/mLQA FLAGS | | | | | | AND/OR RANGES MODIFIED | | | | | | BY DEMOGRAPHIC UPDATE ON | | | | | | 02/17 AT 1748Testing | | | | | | performed at [facility];[address] | | | | | | [address];[place] | | | | | | [address] | | | | + + + + + + | PCP | NEGATIVEComment: | | EXTERNAL | | | | Positive cutoff for PCP | | LAB | | | | = 25 ng/mLQA FLAGS | | | | | | AND/OR RANGES MODIFIED | | | | | | BY DEMOGRAPHIC UPDATE ON | | | | | | 02/17 AT 1748Testing | | | | | | performed at [facility] | | | | | | [address];[place] | | | | | | [address] | | | | + + + + + + | Cannabinoid | NEGATIVEComment: | | EXTERNAL | | | s Screen, | Positive cutoff for THC | | LAB | | | Serum | = 50 ng/mLThe above are | | | | | | unconfirmed screening | | | | | | results. These results | | | | | | are to be used only for | | | | | | medical | | | | | | (i.e.,treatment) | | | | | | purposes. Unconfirmed | | | | | | screening results must | | | | | | not be used for | | | | | | non-medical purposes | | | | | | (e.g., employment | | | | | | testing, legal | | | | | | testing).QA FLAGS AND/OR | | | | | | RANGES MODIFIED BY | | | | | | DEMOGRAPHIC UPDATE ON | | | | | | 02/17 AT 1748Testing | | | | | | performed at [facility] | | | | | | [address];[place] | | | | | | [address] | | | | + + + + + + + + | Specimen | + + | Urine specimen | | (specimen) | + + + +---------+ + + | Performing | Address | City/State/Zipcode | Phone Number | | Organization | | | | + +---------+ + + | EXTERNAL LAB | | | | + +---------+ + + Urinalysis, Reflex Microscopic and/or Culture (02/18/2016 10:21 AM PDT) + + + + + + | Component | Value | Ref Range | Performed | Pathologist | | | | | At | Signature | + + + + + + | Color | YELLOWComment: Testing | | EXTERNAL | | | | performed at [facility];[address] | | LAB | | | | [address];[place] | | | | | | [address] | | | | + + + + + + | Clarity, | CLEARComment: Testing | | EXTERNAL | | | Urine | performed at [facility] [place] [facility];[address] | | LAB | | | [address];[place] | | | | | | [id number] | | | | + + + + + + | Specific | 1.018Comment: Testing | 1.002 - 1.030 | EXTERNAL | | | [place], | performed at [facility] [place];[address] | | LAB | | | Urine | [address];[place] | | | | | | [address] | | | | + + + + + + | Leukocyte | NEGATIVEComment: QA | | EXTERNAL | | | Esterase, | FLAGS AND/OR RANGES | | LAB | | | Urine | MODIFIED BY DEMOGRAPHIC | | | | | | UPDATE ON 02/17 AT | | | | | | 1748Testing performed at | | | | | | [facility] [place];[address];[place] [address] | | | | + + + + + + | Nitrite, | NEGATIVEComment: QA | | EXTERNAL | | | Urine | FLAGS AND/OR RANGES | | LAB | | | | MODIFIED BY DEMOGRAPHIC | | | | | | UPDATE ON 02/17 AT | | | | | | 1748Testing performed at | | | | | | [facility] [place];[address] | | | | | [address];[place] [address] | | | | + + + + + + | Urobilinoge | NORMALComment: QA FLAGS | mg/dL | EXTERNAL | | | n, Urine | AND/OR RANGES MODIFIED | | LAB | | | | BY DEMOGRAPHIC UPDATE ON | | | | | | 02/17 AT 1748Testing | | | | | | performed at [facility] [place];[address] | | | | | | [address];[place] | | | | | | [address] | | | | + + + + + + | Protein, | NEGATIVEComment: QA | mg/dL | EXTERNAL | | | Urine | FLAGS AND/OR RANGES | | LAB | | | | MODIFIED BY DEMOGRAPHIC | | | | | | UPDATE ON 02/17 AT | | | | | | 1748Testing performed at | | | | | | [facility] [place];[address];[place] [address] | | | | + + + + + + | pH, Urine | 6.0Comment: QA FLAGS | 5.0 - 8.0 | EXTERNAL | | | | AND/OR RANGES MODIFIED | | LAB | | | | BY DEMOGRAPHIC UPDATE ON | | | | | | 02/17 AT 8Testing | | | | | | performed at [facility];[address];[place] | | | | | | [address] | | | | + + + + + + | Blood, | NEGATIVEComment: QA | | EXTERNAL | | | Urine | FLAGS AND/OR RANGES | | LAB | | | | MODIFIED BY DEMOGRAPHIC | | | | | | UPDATE ON 02/17 AT | | | | | | 1748Testing performed at | | | | | | [facility];[address];[place] [address] | | | | + + + + + + | Ketones | TRACE (A)Comment: QA | mg/dL | EXTERNAL | | | | FLAGS AND/OR RANGES | | LAB | | | | MODIFIED BY DEMOGRAPHIC | | | | | | UPDATE ON 02/17 AT | | | | | | 1748Testing performed at | | | | | | [facility];[address];[place] [address] | | | | + + + + + + | Bilirubin, | NEGATIVEComment: QA | | EXTERNAL | | | Urine | FLAGS AND/OR RANGES | | LAB | | | | MODIFIED BY DEMOGRAPHIC | | | | | | UPDATE ON 02/17 AT | | | | | | 1748Testing performed at | | | | | | [facility];[address];[place] [address] | | | | + + + + + + | Glucose, | NEGATIVEComment: QA | mg/dL | EXTERNAL | | | Urine | FLAGS AND/OR RANGES | | LAB | | | | MODIFIED BY DEMOGRAPHIC | | | | | | UPDATE ON 02/17 AT | | | | | | 1748Testing performed at | | | | | | [facility];[address];[place] [address] | | | | + + + + + + + + | Specimen | + + | | + + + +---------+ + + | Performing | Address | City/State/Zipcode | Phone Number | | Organization | | | | + +---------+ + + | EXTERNAL LAB | | | | + +---------+ + + , Urine, Qual (02/18/2016 10:21 AM PDT) + + + + + + | Component | Value | Ref Range | Performed | Pathologist | | | | | At | Signature | + + + + + + | Preg Test, | NEGATIVEComment: Testing | | EXTERNAL | | | Ur | performed at [facility];[address] | | LAB | | | | [address];[place], [place] | | | | | | [address] | | | | + + + + + + + + | Specimen | + + | Urine specimen | | (specimen) | + + + +---------+ + + | Performing | Address | City/State/Zipcode | Phone Number | | Organization | | | | + +---------+ + + | EXTERNAL LAB | | | | + +---------+ + + POC Glucose (02/18/2016 9:56 AM PDT) + + + + + + | Component | Value | Ref Range | Performed | Pathologist | | | | | At | Signature | + + + + + + | Glucose, | 98Comment: Testing | 65 - 99 mg/dL | EXTERNAL | | | Fingerstick | performed at [facility];[address] | | LAB | | | | [address];[place] | | | | | | [address] | | | | + + + + + + + + | Specimen | + + | | + + + +---------+ + + | Performing | Address | City/State/Zipcode | Phone Number | | Organization | | | | + +---------+ + + | EXTERNAL LAB | | | | + +---------+ + + documented in this encounter Visit Diagnoses + + | Diagnosis | + + | Respiratory failure, unspecified chronicity, unspecified whether with hypoxia or | | hypercapnia (HCC) | + + | Allergic drug reaction Other drug allergy | + + | Lactic acidosis Acidosis | + + | Hypokalemia Hypopotassemia | + + documented in this encounter
--- OUTSIDE RECORDS SUMMARY | ~2020-06-14 | XMS | Encounter Summary ---
Demographics + + + | Address | [address] | | | [place] [address] | + + + | Home Phone | | + + + | Preferred Language | Unknown | + + + | Marital Status | | + + + | Congregation Affiliation | Unknown | + + + | Race | Unknown | + + + | Ethnic Group | Unknown | + + + Author + + + | Author | [facility] | | | and Zakiana | + + + | Organization | [facility] | | | and [...] [place] | | | | | [address] | | + + + + + Care Team Providers + +------+ + | Care Maternal Child Nurse Name | Role | Phone | + +------+ + PCP | Unavailable | + +------+ + Encounter Details +--------+ + + + + | Date | Type | Department | Care Team | Description | +--------+ + + + + | 07/22/ | Emergency | [facility] | Donavon Baldwin | Unspecified Symptom | | 2006 | | MEDICAL CENTER | MD [address] | Associated with | | | | EMERGENCY CENTER | [address] [place] | Female Genital | | | | [address] | [address] | Organs | | | | [facility] [place] | [phone] | | | | | [address] | | | | | | [phone] | | | +--------+ + + + [...] + + documented as of this encounter Plan of Treatment Not on filedocumented as of this encounter Visit Diagnoses + + | Diagnosis | + + | Unspecified symptom associated with female genital organs | + + documented in this encounter"
--- OUTSIDE RECORDS SUMMARY | ~2020-06-14 | XMS | Encounter Summary ---
Demographics + + + | Address | [address] | | | [place] [address] | + + + | Home Phone | | + + + | Preferred Language | Unknown | + + + | Marital Status | | + + + | Shinto Affiliation | Unknown | + + + | Race | Unknown | + + + | Ethnic Group | Unknown | + + + Author + + + | Author | [facility] | | | and [place] | + + + | Organization | [facility] | | | and [...] [place] | | | | | [address] | | + + + + + Care Team Providers + +------+ + | Care Skimmer Scoop Operator Name | Role | Phone | + +------+ + PCP | Unavailable | + +------+ + Encounter Details +--------+ + + + + | Date | Type | Department | Care Team | Description | +--------+ + + + + | 02/23/ | Emergency | [facility] | Eduardo Leos, | Pain, dental; | | 2015 | | MEDICAL CENTER | MD Dave Barnard | Other insomnia | | | | EMERGENCY CENTER | [place] [address] | | | | | [address] | [phone] | | | | | [place], [place] | | | | | | [address] | | | | | | [phone] | | | +--------+ + + + [...] + + documented as of this encounter ED Notes Eduardo Leos MD - 02/24/2016 1:58 PM PDTFormatting of this note might be different fro m the original. ED Provider Notes by Eduardo Leos MD at 02/24/16 8527 Author: Eduardo Leos MD Service: (none) Author Type: Physician Filed: 02/24/16 3225 Date of Service: 02/24/16 645 Status: Signed Hspt Tutor: Eduardo Leos MD (Physician) [facility] Department of Emergency Medicine 2:01 PM History of Present Illness Patient Identification Pallavi Sandoval is a 35 y.o. female. Chief Complaint Chief Complaint Patient presents with Dental Pain right lower jaw, dentist not able to remove tooth. pt waiting for OMFS Insomnia d/t dental pain HPI: Location: right bottom molar Onset/Duration: for the past week Quality: sharp Severity: 08/21 Radiation: none Modifying factors: Patient currently taking Percocet for pain with minimal relief. Patient was seen by her dentist last week who attempted to numb tooth, however patient went into res piratory distress and was sent to the ED from dentist's office. She was intubated by EMS an d then extubated in the ED. Patient called dentist about the dental pain today who instruc cher her to come to the ED. Assosiated symptoms: Difficulty sleeping secondary to pain, nausea and vomiting secondary t o pain medication and chills. Context: Patient states "I haven't slept and I really need help. No one seems to be helping me. I am not getting out of here without help." "Percocet is not helping me. It only works for an hour and 45 minutes, I timed it, and then I go back to being in extreme pain." She do es have an appointment to see a OMF Surgeon tomorrow. PCP: PER PT NONE Past Medical History Diagnosis Date Respiratory arrest (HCC) 02/18/2016 Allergic reaction caused by a drug 02/18/2016 Precordial pain 02/18/2016 Past Surgical History Procedure Laterality Date Cholecystectomy Prior to Admission medications Medication Sig Start Date End Date Taking? Authorizing Provider HYDROcodone-acetaminophen (NORCO) 5-325 MG per tablet Take 1 tablet by mouth every 4 (four) hours as needed. 02/22/16 Yes Historical Provider traMADol (ULTRAM) 50 MG tablet Take 1-2 tablets by mouth every 6 (six) hours as needed for Pain. 02/19/16 02/29/16 Yes Chio Martinez MD amoxicillin-clavulanate (AUGMENTIN) 875-125 MG per tablet Take 1 tablet by mouth 2 (two) ti mes daily. 02/19/16 02/26/16 Chio Martinez MD Allergies Allergen Reactions Novocaine [Procaine] Other (See Comments) Respiratory arrest Acetaminophen Other (See Comments) Unknown reaction Latex Other (See Comments) Per unknown Oxycodone Other (See Comments) Unknown History Social History Marital Status: Spouse Name: N/A Number of Children: N/A Years of Education: N/A Occupational History Not on file. Social History Main Topics Smoking status: Never Smoker Smokeless tobacco: Not on file Alcohol Use: Not on file Drug Use: Not on file Sexual Activity: Not on file Other Topics Concern Not on file Social History Narrative History reviewed. No pertinent family history. Review of Systems Constitutional: Negative for fever, chills Positive for difficulty sleeping secondary to pain Eyes: Negative for vision changes ENT: Negative for earache Positive for dental pain CV Negative for chest pain, Resp: Negative for yhjumugvm-[id number], cough GI: Negative for abdominal pain, or diarrhea Positive for nausea and emesis secondary to pain medication : Negative for urinary problems Musculoskeletal: Negative for back pain, joint pain Skin: Negative for rash Neuro/Psych: Negative for headache Other systems reviewed and negative except as noted. Physical Exam BP 124/66 mmHg | Pulse 108 | Temp(Src) 98.7 F (37.1 C) (Temporal) | Resp 20 | Wt 52.2 k g (115 lb 1.3 oz) | SpO2 99% Vital signs interpretation: Tachycardic, otherwise WNL Pulse Oximetry interpretation: Normal General: Alert, in no apparent distress Eyes: Normal inspection, pupils equal and round, non-icteric ENT: Ears normal Nose normal Moist mucous membranes, no intraoral lesions No facial swelling No trismus, no intraoral abscess formation Tender to palpation around right lower 2nd molar Missing dentition throughout mouth Neck: Normal inspection, Supple CV: Rate and rhythm normal, no murmurs Respiratory: Lungs clear to auscultation bilaterally, Normal WOB Abdomen: Soft, non-tender, non-distended, No rebound or guarding Ext: No edema or trauma noted Skin: Warm and dry, No rash Neuro: Normal facial symmetry No gross motor/sensory deficits Medical Decision Making and Emergency Department Course ED Department Course Patient presents to ED with complaints of dental pain. The patient is unable to having any local anesthetic as the patient went into respiratory distress last week at the dentist sec ondary to being given anesthetic. I will give patient and reevaluate. The patient is stable at this time. DDx includes: dental caries, 2:40 PM Per nurse patient refusing any pain medication and states "I am not having any medi cation until the doctor has a plan for me to help me fix this." 2:57 PM Patient recheck. Apologized to patient for having to step out due emergent conditio n in another patient. Informed patient that the pain medication I would like to give her pat l last for a few hours, however there is no one time medication that will relieve her pain a ll night. Patient and patient's family members upset as the patient has thrown up from pain medication and I reassured them that I can also give anti nausea medication to help with thi s. I advised the patient that as the pain medication I give her in the ED will last several hours, she should also continue to take ibuprofen and percocet once the long acting pain med ication given in the ED wears off. Patient keeps stating that she is irritated due to pain s he is experiencing and when asked how I can help her she states "I don't know. You are the d octor. I don't want to get helped for 4 hours, I want to be helped all night." I have contin ued to reassure the patient that I am trying to help relieve her pain, and the best way to d o that is with pain medication and offered IV pain medication, IM pain medication or oral pa in medication. She had no intraoral lesions and had an outpatient appt tomorrow. No emergen t tooth extraction was indicated in the ED. I offered to treat her pain here. 3:04 PM After extremely extensive discussion with patient and patient's family, the patient has finally agreed to have IM Dilaudid and Toradol. We also discussed the benefits of Benad ryl to help the patient sleep. 3:18 PM. Patient reevaluation. Patient is stable and feeling better at this time. I discuss ed all ED results and my clinical impression with the patient. Patient is ready for discharg e. I advised patient to follow up with a PCP and we discussed the emergent signs and symptom s that would necessitate a return to ED. All questions and concerns addressed. Will discharg e home with Rx for Zofran, Percocet and Motrin. Filed Vitals: 02/24/16 1337 02/24/16 1538 BP: 124/66 112/72 Pulse: 108 68 Temp: 98.7 F (37.1 C) TempSrc: Temporal Resp: 20 20 Weight: 52.2 kg (115 lb 1.3 oz) SpO2: 99% 96% Medications HYDROmorphone (DILAUDID) injection 2 mg (2 mg Intramuscular Given 02/24/16 1509) ketorolac (TORADOL) injection 60 mg (60 mg Intramuscular Given 02/24/16 1509) ondansetron (ZOFRAN) tablet 4 mg (4 mg Oral Given 02/24/16 1508) Records Reviewed Old Medical Records Laboratory Evaluation Results None I personally reviewed the lab results and they have been posted to the chart. Pertinent po sitive and negative findings have been addressed appropriately. Radiology and EKG Evaluation Imaging Results None ED Diagnoses Final diagnoses Pain, dental Other insomnia Disposition: ED Disposition Discharge Condition at discharge: Stable Follow-up Information Follow up With Details Comments Contact Info [facility] Emergency Department If symptoms worsen [address] [place] [address] Your dentist Go in 1 day As scheduled Discharge Medications: Discharge Medication List as of 02/24/2016 3:37 PM START taking these medications Details ibuprofen (MOTRIN) 600 MG tablet Take 1 tablet by mouth 4 (four) times daily as needed for Pain or Fever., Starting 02/24/2016, Until 03/05/16, Print ondansetron (ZOFRAN) 4 MG tablet Take 1 tablet by mouth 3 (three) times daily., Starting , Until Lupe 03/02/16, Print oxyCODONE-acetaminophen (PERCOCET) 5-325 MG per tablet Take 1-2 tablets by mouth every 4 (f our) hours as needed for Pain., Starting 02/24/2016, Until 03/05/16, Print Dictation software, [employer], used which may contain error for similar sounding words even af ter review. Personal communication requested for any clarification. Procedures Additional Documentation Procedures Attending Note: Documentation assistance provided by Dodie Tony (Scribe). Information recorded by the scribe has been reviewed and validated by me. Aissatou watson with its contents. MD Eduardo Hummel MD 02/24/16 1744 documented in this e ncounter Plan of Treatment Not on filedocumented as of this encounter Visit Diagnoses + + | Diagnosis | + + | Pain, dental Unspecified disorder of the teeth and supporting structures | + + | Other insomnia | + + documented in this encounter
[~2020-06-14 10:31] MED LIST: AZITHROMYCIN250 MG PO; METRONIDAZOLE500 MG PO; MOTRIN IB200 MG PO; NORCO 5-325 TA1 EACH PO; POLYTRIM EYE DR10 ML OU; ROBITUSSIN100 MG/5 M PO; VIBRAMYCIN100 MG PO
--- NOTE | 2020-06-14 11:22 | NUR ---
1118 VS 106/63 Map 73 O2 100 Pulse 93
[2020-06-14] MEDS ORDERED: CLEOCIN HCL300 MG PO (12:59)
== END 2020-06-14 13:12 | disposition home or self-care (01) ==
LOC: ED 10:31
PROC: 0XQMXZZ Repair Left Thumb, External Approach (ICD-10-PCS; principal; 2020-06-14)
DX: S61.012A Laceration without foreign body of left thumb without damage to nail, initial encounter (principal); Z23 Encounter for immunization; Z88.0 Allergy status to penicillin; W26.0XXA Contact with knife, initial encounter
CPT/HCPCS: 12001; 80053; 85025; 90471; 90715; 99283-25; G0480

== ENCOUNTER 2021-02-20 16:30 | Emergency (ER) | payer OTHER ==
[~2021-02-20] VITALS: Ht 162.6 cm; Wt 49.9 kg
[~2021-02-20 16:30] MED LIST changes: +CLEOCIN HCL300 MG PO
== END 2021-02-20 19:30 | disposition home or self-care (01) ==
LOC: ED 16:30
DX: K59.00 Constipation, unspecified (principal); Z88.0 Allergy status to penicillin
CPT/HCPCS: 74177; 80053; 81001; 83690; 83735; 85025; 96375; 99284-25; J1170; J1790; J2405; J7030; Q9967

== ENCOUNTER 2022-12-25 18:56 | Emergency (ER) | payer OTHER ==
--- NOTE | 2022-12-26 07:14 | EKG ---
[facility] [address] [facility] [place], [place] [address] Signed Normal sinus rhythm Normal ECG No previous ECGs available Confirmed by JOSIAH RAYMUNDO MD ([id number]) on 12/26/2022 7:14:12 AM Electronically Signed By: JOSIAH RAYMUNDO MD 12/26/22713 PATIENT NAME: SANTIAGO JERNIGAN Electrocardiogram DATE OF : 80 PHYSICIAN: JOSIAH RAYMUNDO MD REPORT #: [id number] REPORT IS CONFIDENTIAL AND NOT TO BE RELEASED WITHOUT AUTHORIZATION
== END 2022-12-25 21:07 | disposition home or self-care (01) ==
LOC: ED 18:56
DX: E16.2 Hypoglycemia, unspecified (principal); H10.9 Unspecified conjunctivitis; Z20.822 Contact with and (suspected) exposure to COVID-19; Z88.0 Allergy status to penicillin
CPT/HCPCS: 36415; 71045; 80053; 84484; 85025; 87502; 93005; 93010; 96374; 96375; 99285-25; J2405; U0003

== ENCOUNTER 2023-01-25 01:20 | Emergency (ER) | payer OTHER ==
[~2023-01-25] VITALS: Ht 162.6 cm; Wt 49.4 kg
--- NOTE | 2023-01-26 16:15 | EKG ---
[facility] [address] [facility] [place], [place] [address] Signed Normal sinus rhythm Normal ECG When compared with ECG of 25-DEC-2022 19:31, No significant change was found Confirmed by RENZO SPENCER MD ([id number]) on 01/26/2023 4:15:05 PM Electronically Signed By: RENZO SPENCER MD 01/26/23 1615 PATIENT NAME: SANTIAGO JERNIGAN Electrocardiogram DATE OF : 80 PHYSICIAN: RENZO SPENCER MD REPORT #: [id number] REPORT IS CONFIDENTIAL AND NOT TO BE RELEASED WITHOUT AUTHORIZATION
== END 2023-01-25 02:58 | disposition home or self-care (01) ==
LOC: ED 01:20
DX: R07.2 Precordial pain (principal); Z20.822 Contact with and (suspected) exposure to COVID-19; Z88.0 Allergy status to penicillin
CPT/HCPCS: 36415; 71045; 80053; 81003; 83735; 83880; 84484; 85025; 85379; 85610; 87502; 93005; 93010; 99285-25; A9270; C9803; U0003

== ENCOUNTER 2023-06-10 08:51 | Observation (INO) | payer OTHER ==
[~2023-06-10] VITALS: Ht 162.6 cm; Wt 49.9 kg
[2023-06-10] MEDS ORDERED: VITAMIN D21250 MCG PO (11:26)
[2023-06-10 11:27] VITALS: BP 108/65
--- NOTE | 2023-06-10 12:07 | NUR ---
SETTLED PATIENT IN ROOM. OBTAINED VITAL SIGNS AND PERFORMED ASSESSMENT. PT REPORTING SEVERE HEADACHE BUT UNABLE TO GIVE A NUMBER TO RATE HER PAIN. OFFERED TYLENOL, BUT PT REFUSED. PT CALLED HER ON HER CELL PHONE BUT STILL DID NOT GIVE PERMISSION FOR STAFF TO NOTIFY HIM OF HER ADMISSION. CALL LIGHT WITHIN REACH NO FURTHER NEEDS VOICED.
[2023-06-10 13:17] VITALS: BP 105/56
--- NOTE | 2023-06-10 13:23 | NUR ---
ROUNDED ON PT. PERFORMED NEURO ASSESMENT AND OBTAINED VITAL SIGNS. PT STATES SHE IS FEELING BETTER AND WANTED TO GO HOME. PT EDUCATED ABOUT OBSERVATIONS STATUS AND THE POSSIBILTY OF MORE IMAGING TOMORROW. PT IS NOW ABLE TO STATE HER DATE OF AND TODAYS DATE. PT STATES SHE IS STILL EXPERIENCING WEAKNESS. CALL LIGHT WITHIN REACH AND NO FURTHER NEEDS VOICED.
--- NOTE | 2023-06-10 15:47 | NUR ---
ROUNDED ON PT. PT JUST WOKE UP FROM A NAP. WARMED UP LUNCH FOR PT. NO FURTHER NEEDS VOICED. CALL LIGHT WITHIN REACH.
--- NOTE | 2023-06-10 16:01 | NUR ---
MED REC COMPLETE
[2023-06-10 17:41] VITALS: BP 124/71
--- NOTE | 2023-06-10 17:49 | NUR ---
ROUNDED ON PATIENT. OBTAINED VITAL SIGNS AND PERFORMED NEURO ASSESSMENT. NOTED WEAKENSS ON RIGHT SIDE. SENSATION IN RIGHT LEG IMPROVED SINCE LAST ASSESSMENT. NO FURTHER NEEDS VOICED BY THE PATIENT. PTS SISTER AT BEDSIDE. CALL LIGHT WITHIN REACH.
[2023-06-10 20:23] VITALS: BP 106/61
--- NOTE | 2023-06-10 20:25 | NUR ---
PT ASSESSED. Q4 NEURO CHECK DONE. PT STATED THAT NUMBNESS IS ALMOST COMPLETELY GONE ON RIGHT SIDE OF BODY. PT CONTINUES TO COMPLAIN OF A HEADACHE THAT IS GETTING INCREASINGLY WORSE. DR NASSAR NOTIFIED. DOCTOR ORDERED SOME ONE TIME ORDERS FOR THE HEADACHE. PT RESTING. PT'S FAMILY VISITING PT. VSS. SAFETY PRECAUTIONS MAINTAINED. CALL LIGHT WITHIN REACH. WILL CONTINUE TO MONITOR.
[2023-06-11 00:14] VITALS: BP 100/56
[2023-06-11 04:17] VITALS: BP 93/54
--- NOTE | 2023-06-11 06:15 | EKG ---
[facility] [address] [facility] [place], [place] [address] Signed Normal sinus rhythm Low voltage QRS Borderline ECG When compared with ECG of 25-JAN-2023 01:28, No significant change was found Confirmed by FLORECITA NASSAR MD ([id number]) on 06/11/2023 6:15:10 AM Electronically Signed By: FLORECITA NASSAR 06/11/23 0615 PATIENT NAME: SANTIAGO JERNIGAN Electrocardiogram DATE OF : 80 PHYSICIAN: FLORECITA NASSAR REPORT #: [id number] REPORT IS CONFIDENTIAL AND NOT TO BE RELEASED WITHOUT AUTHORIZATION
--- NOTE | 2023-06-11 06:15 | NUR ---
PT RESTED WELL THROGHOUT THE SHIFT. 1 TIME ORDER OF IV BENADRYL AND COMPAZINE WORKED ON PT'S HEADACHE. PT DENIED ANY HEADACHE THE REST OF THE SHIFT. Q4 NEURO CHECKS DONE. NUMBNESS IN RIGHT ARM AND LEG IS GONE PER PT. PT IS ONLY SLIGHTLY WEAKER IN RIGHT EXTREMITIES AT THIS TIME. PT STATED THAT THEY ARE FEELING BETTER. VSS. SAFETY PRECAUTIONS MAINTAINED. CALL LIGHT WITHIN REACH. WILL CONTINUE TO MONITOR.
--- NOTE | 2023-06-11 07:32 | NUR ---
PATIENT RESTING IN BED. BEDSIDE REPORT FROM JE MORGAN. PATIET REPORTS SLEPT WELL LAST NIGHT. NO OTHER NEEDS AT THIS TIME.
--- NOTE | 2023-06-11 08:07 | NUR ---
THIS BLEACH MAKER HAS TAKEN OVER CARES FOR THIS PT FROM [employer] BLEACH MAKER. PT IS RESTING IN BED. PT DENIED ANY NEEDS AT THIS TIME. CALL LIGHT WITHIN REACH.
--- NOTE | 2023-06-11 09:31 | NUR ---
PATIENT TO MRI, MORNING MEDICAITONS DELAYED.
[2023-06-11 10:21] VITALS: BP 93/55
--- NOTE | 2023-06-11 10:31 | NUR ---
PT TOLD BAKESHOP CLEANER THAT SHE IS LACTOSE INTOLERANT AND IS NOT ABLE TO EAT EGGS SO SHE WAS ONLY ABLE TO EAT 50% OF THE BREAKFAST TRAY. PT STATED SHE WOULD LIKE CHICKEN NOODLE SOUP AND GRILLED CHICKEN FOR LUNCH. BAKESHOP CLEANER CALLED DIETARY TO PUT IN LUNCH ORDER. NO OTHER NEEDS AT THIS TIME. CALL LIGHT WITHIN REACH.
--- NOTE | 2023-06-11 10:53 | NUR ---
PATIENT UP WITH WITH PHYSICAL THERAPY, REPORTED SOME DIZZINESS. BACK TO ROOM. DR. NASSAR AWARE. PATIENT RESTING BACK IN BED, AWAITING MRI RESULTS. NO OTHER NEEDS AT THIS TIME.
--- NOTE | 2023-06-11 10:58 | NUR ---
SITTING UP IN RECLINER. WORKED WITH PT THIS AM. STATES SHE LIVES AT HOME WITH SPOUSE AND CHILDREN, MULTIPLE STAIRS IN HOME. PT NOTE STATES SHE IS ABLE TO DO STAIRS. PATIENT CONTINUES TO HAVE WEAKNESS WITH EXERTION WHICH ALTERS GAIT. PATIENT VERIFIES HER ADDRESS, PHONE NUMBER, EMERGENCY CONTACT, INSURANCE, PHARMACY AND STATES SHE DOES NOT USE ANY DME. CANE WAS USED WITH PT. OFFERED TO ASSIST PATIENT TO GET A CANE, DO[place] NOT VERBALIZE [place]E AT [place]. STATES HER CAN ASSIST WITH TRANSPORTATION TO PT/OT ETC. IF NEEDED FOR OUTPATIENT TREATMENTS. DENIES DIFFICULTY MEETING FINANCIAL NEEDS, FOOD ETC.
--- NOTE | 2023-06-11 11:58 | NUR ---
[facility] INFORMATION PROVIDED TO PATIENT FOR CANE IT IS HIGHLY RECOMMENDED SHE USE WITH AMBULATION WHEN SHE IS TIRED. ALSO DISCUSSED NEED FOR O/P PT AT DISCHARGE. PATIENT WOULD LIKE TO USE [facility] FOR PT.
[2023-06-11] MEDS ORDERED: VITAMIN B125000 MCG PO (13:16)
[2023-06-11 13:58] VITALS: BP 92/56
== END 2023-06-11 13:50 | disposition home or self-care (01) ==
LOC: ED 08:51 → MS 08:53
PROVIDERS: ADMIT Family Medicine; ATTEND Family Medicine
DX: R53.1 Weakness (principal); R41.82 Altered mental status, unspecified; Z88.0 Allergy status to penicillin; M54.50 Low back pain, unspecified; R20.2 Paresthesia of skin; R51.9 Headache, unspecified
CPT/HCPCS: 36415; 70450; 70496; 70498; 70553; 71045; 72128; 80053; 80061; 81001; 82607; 82746; 83735; 84703; 85025; 85610; 85730; 87536; 93005; 93010; 96372; 96374; 96375; 97116; 97161; 97165; 97530; 99285-25; A9270; A9579; G0378; J0780; J1200; J1650; J3420; Q9967

== ENCOUNTER 2024-06-19 01:55 | Emergency (ER) | payer OTHER ==
[~2024-06-19] VITALS: Ht 162.6 cm; Wt 54.0 kg
[~2024-06-19 01:55] MED LIST changes: +VITAMIN B125000 MCG PO; +VITAMIN D21250 MCG PO
[2024-06-19] MEDS ORDERED: ondansetron HCL 4 MG/2 ML VIAL IV ONE (02:15)
[2024-06-19] MEDS ORDERED: LACTATED RINGER'S 1,000 ML IV ONE (02:15)
[2024-06-19 02:18] LABS: BASOPHILS 0.4 % (0-2); EOSINOPHILS 1.3 % (0-6); HEMOGLOBIN 12.5 g/dL (12.0-18.0); MCH 31.9 (27-36); MCHC 34.8 g/dl (30-36); MCV 91.8 fl (81-99); MONOCYTES 6.5 % (0-12); NEUTROPHILS 76.8 % (39-80); PLATELET COUNT 185 K/uL (140-440); RBC 3.93 M/ul (4.3-5.7); RDW 12.7 (10.5-15.0)
[2024-06-19 02:43] LABS: ALBUMIN 3.8 g/dL (3.4-5.0); ALBUMIN/GLOBULIN RATIO 1.06 (1.1-2.4); ANION GAP 12.4 (7-21); BILIRUBIN, TOTAL 0.5 ng/dL (0.2-1.0); BUN/CREATININE RATIO 13.69 (6.0-28.6); CALCIUM 8.3 mg/dL (8.5-10.1); CREATININE, SERUM 0.73 mg/dL (0.55-1.02); MAGNESIUM 2.1 mg/dL (1.8-2.4); POTASSIUM 3.4 mmol/L (3.5-5.1); PROTEIN, TOTAL 7.4 g/dL (6.4-8.2); TSH, 3RD GENERATION 1.143 uIU/mL (0.358-3.740)
[2024-06-19 02:56] LABS: INFLUENZA B NAA NEGATIVE (NEGATIVE); RESPIRATORY SYNCYTIAL VIR NAA NEGATIVE (NEGATIVE)
[2024-06-19] MEDS ORDERED: ONDANSETRON ODT8 MG PO (03:17)
[2024-06-19] MEDS ORDERED: CYCLOBENZAPRINE10 MG PO (03:17)
[2024-06-19] MEDS ORDERED: CYCLOBENZAPRINE HCL 10 MG HOME.PACK PO ONE (03:30)
[2024-06-19] MEDS ORDERED: ONDANSETRON 4 MG HOME.PACK SL ONE (03:30)
[2024-06-19 03:50] VITALS: BP 102/65
--- NOTE | 2024-06-19 12:55 | EKG ---
[facility] [address] [facility] [place], [place] [address] Signed Sinus tachycardia Otherwise normal ECG When compared with ECG of 10-JUN-2023 09:23, No significant change was found Confirmed by Jonas Dorado MD ([id number]) on 06/19/2024 12:55:02 PM Electronically Signed By: JONAS DORADO 06/19/24 1255 PATIENT NAME: SANTIAGO JERNIGAN Electrocardiogram DATE OF : 80 PHYSICIAN: JONAS DORADO REPORT #: [id number] REPORT IS CONFIDENTIAL AND NOT TO BE RELEASED WITHOUT AUTHORIZATION
== END 2024-06-19 04:03 | disposition home or self-care (01) ==
LOC: ED 01:55
PROVIDERS: Family Medicine
DX: U07.1 COVID-19 (principal); Z79.899 Other long term (current) drug therapy; Z88.0 Allergy status to penicillin
CPT/HCPCS: 36415; 80053; 83735; 84443; 85025; 87502; 93005; 93010; 96361; 96374; 99285-25; A9270; J2405; J7121; U0002

== ENCOUNTER 2025-06-17 19:21 | Emergency (ER) | payer OTHER ==
[~2025-06-17] VITALS: Ht 162.6 cm; Wt 51.3 kg
[~2025-06-17 19:21] MED LIST changes: +CYCLOBENZAPRINE10 MG PO; +ONDANSETRON ODT8 MG PO
[2025-06-17] MEDS ORDERED: KETOROLAC TROMETHAMINE 60 MG/2 ML VIAL IM ONE (19:45)
[2025-06-17] MEDS ORDERED: diazePAM 10 MG/2 ML SYR IM ONE (19:45)
[2025-06-17] MEDS ORDERED: CELEBREX200 MG PO (20:37)
[2025-06-17] MEDS ORDERED: HYDROCODONE BIT/ACETAMINOPHEN 5/325 MG 1 TAB HOME.PACK PO ONE (20:45)
[2025-06-17] MEDS ORDERED: MORPHINE SULFATE 10 MG/ML VIAL IM ONE (21:30)
[2025-06-17] MEDS ORDERED: ONDANSETRON 4 MG TAB ODT SL ONE (22:00)
[2025-06-17] MEDS ORDERED: HALOPERIDOL LACTATE 5 MG/ML VIAL IM ONE (22:15)
[2025-06-17] MEDS ORDERED: HALOPERIDOL LACTATE 5 MG/ML VIAL IV ONE (22:15)
[2025-06-17] MEDS ORDERED: LORazepam 2 MG/ML VIAL IV ONE (22:15)
[2025-06-17 22:21] LABS: BASOPHILS 0.5 % (0.1-1.2); EOSINOPHILS 1.4 % (0.7-5.8); LYMPHOCYTES 54.7 % (19.3-51.7); MCH 31.3 PG (25.6-32.2); MCHC 35.5 g/dL (32.2-35.5); MCV 88.3 fL (79.4-94.8); MONOCYTES 7.9 % (4.7-12.5); NEUTROPHILS 35.3 % (34.0-71.1); RBC 3.86 M/uL (3.93-5.22)
[2025-06-17 22:32] LABS: INR 1.02 (0.80-1.30); PROTIME 13.0 Sec (11.2-14.2)
[2025-06-17 22:38] LABS: ALT (SGPT) 19.0 U/L (14-59); AST (SGOT) 20.0 U/L (15-37); GLOMERULAR FILTRATION RATE,EST 91.0 mL/min (>60); PROTEIN, TOTAL 7.6 g/dL (6.4-8.2); UREA NITROGEN 15.0 mg/dL (7-18)
[2025-06-17] MEDS ORDERED: SODIUM CHLORIDE 0.9% 1,000 ML IV ONE (23:30)
[2025-06-18 01:16] VITALS: BP 92/53
--- NOTE | 2025-06-18 22:29 | EKG ---
[facility] [address] [facility] [place], [place] [address] Signed Normal sinus rhythm Normal ECG Confirmed by Lidia Zimmer MD ([id number]) on 06/18/2025 10:29:24 PM Electronically Signed By: LIDIA ZIMMER MD 06/18/25 2229 PATIENT NAME: SANTIAGO JERNIGAN Electrocardiogram DATE OF : 80 PHYSICIAN: LIDIA ZIMMER MD REPORT #: [id number] REPORT IS CONFIDENTIAL AND NOT TO BE RELEASED WITHOUT AUTHORIZATION
== END 2025-06-18 01:17 | disposition home or self-care (01) ==
LOC: ED 19:21
PROVIDERS: Family Medicine
DX: S29.012A Strain of muscle and tendon of back wall of thorax, initial encounter (principal); Z88.0 Allergy status to penicillin; Z88.8 Allergy status to other drugs, medicaments and biological substances; W50.0XXA Accidental hit or strike by another person, initial encounter
CPT/HCPCS: 36415; 71045; 72080; 80053; 83735; 84484; 85025; 85379; 85610; 93005; 93010; A9270; J1200; J1630; J1885; J2060; J2270; J3360; J7030

== ENCOUNTER 2025-10-05 15:59 | Emergency (ER) | payer OTHER ==
[~2025-10-05] VITALS: Ht 162.6 cm; Wt 53.2 kg
[~2025-10-05 15:59] MED LIST changes: +CELEBREX200 MG PO
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
[2025-10-05 16:21] LABS: BASOPHILS 0.6 % (0.1-1.2); EOSINOPHILS 3.5 % (0.7-5.8); LYMPHOCYTES 36.0 % (19.3-51.7); MCH 31.2 PG (25.6-32.2); MCHC 34.6 g/dL (32.2-35.5); MCV 90.2 fL (79.4-94.8); MONOCYTES 7.7 % (4.7-12.5); NEUTROPHILS 52.0 % (34.0-71.1); RBC 4.20 M/uL (3.93-5.22)
[2025-10-05] MEDS ORDERED: ALBUTEROL/IPRATROPIUM 3 ML NEB INH PRN (16:30)
[2025-10-05 16:47] LABS: ALT (SGPT) 15.0 U/L (14-59); AST (SGOT) 15.0 U/L (15-37); GLOMERULAR FILTRATION RATE,EST 114.0 mL/min (>60); PROTEIN, TOTAL 7.9 g/dL (6.4-8.2); UREA NITROGEN 7.0 mg/dL (7-18)
[2025-10-05 16:57] LABS: CORONAVIRUS COVID-19 AG NEGATIVE (NEGATIVE)
[2025-10-05] MEDS ORDERED: VENTOLIN HFA18 GM INH (17:11)
[2025-10-05] MEDS ORDERED: BENZONATATE200 MG PO (17:11)
[2025-10-05 17:24] VITALS: BP 139/73
--- NOTE | 2025-10-06 10:58 | EKG ---
[facility] [address] [facility] [place] [address] Signed Sinus tachycardia with occasional premature ventricular complexes Septal infarct , age undetermined Abnormal ECG When compared with ECG of 17-JUN-2025 22:31, premature ventricular complexes are now present Septal infarct is now present QT has lengthened Confirmed by Kiel Jones DO ([id number]) on 10/06/2025 10:58:14 AM Electronically Signed By: KIEL JONES DO 10/06/25 1058 PATIENT NAME: SANTIAGO JERNIGAN Electrocardiogram DATE OF : 80 PHYSICIAN: KIEL JONES DO REPORT #: [id number] REPORT IS CONFIDENTIAL AND NOT TO BE RELEASED WITHOUT AUTHORIZATION
== END 2025-10-05 17:25 | disposition home or self-care (01) ==
LOC: ED 15:59
PROVIDERS: Emergency Medicine
DX: J40 Bronchitis, not specified as acute or chronic (principal); Z88.0 Allergy status to penicillin
CPT/HCPCS: 36415; 71045; 80053; 83735; 85025; 93005; 93010; 94640; 99285-25